=== PATIENT | male | born 1965 | race Caucasian/White ===

== ENCOUNTER 2017-07-25 16:28 | Inpatient (IN) | payer OTHER ==
--- NOTE | 2017-07-25 16:57 | PDOC ---
Rapid Medical Evaluation Time Seen by Provider: 07/25/17 16:55 Medical Evaluation: 07/25/17 16:55 I have performed a brief in-person evaluation of this patient. The patient presents with a chief complaint of: Worsening head/neck tremors w/ ataxia and anorexia x 2 weeks. H/o torticollis s/p botox in the past Pertinent physical exam findings:head/neck tremors while at triage I have ordered the following: cbc/chem/ua The patient will proceed to the ED for further evaluation. 07/25/17 16:57 07/25/17 16:59 Discharge Disposition - Referrals Referrals: Carlos Mejia MD [Primary Care Provider] - - Patient Instructions - Post Discharge Activity
[2017-07-25 17:02] VITALS: BMI 24.4
[2017-07-25 17:21] LABS: BASO % 0.8 % (0-2.0); EOS % 0.1 % (0-4.5); HEMATOCRIT 49.3 % (35.4-49); HEMOGLOBIN 16.8 GM/dL (11.7-16.9); LYMPH % 14.3 % (8-40); MCH 32.5 pg (25.7-33.7); MEAN CELL VOLUME 95.5 fl (80-96); MONO % 6.6 % (3.8-10.2); NEUT % 78.2 % (42.8-82.8); PLATELET COUNT 81 K/MM3 (134-434); RBC 5.16 M/mm3 (4.00-5.60); RDW 13.8 % (11.9-15.9); WHITE BLOOD COUNT 4.7 K/mm3 (4.0-10.0)
[2017-07-25 17:44] LABS: ALBUMIN 4.1 g/dl (3.4-5.0); ANION GAP 15 (8-16); BILIRUBIN,TOTAL 0.9 mg/dL (0.2-1.0); BLOOD UREA NITROGEN 13 mg/dL (7-18); CALCIUM 8.1 mg/dL (8.5-10.1); CHLORIDE 95 mmol/L (98-107); CO2 26 mmol/L (21-32); CREATININE 0.9 mg/dL (0.7-1.3); GLUCOSE,RANDOM 174 mg/dL (74-106); POTASSIUM 3.2 mmol/L (3.5-5.1); SGOT/AST 103 U/L (15-37); SGPT/ALT 69 U/L (12-78); SODIUM 136 mmol/L (136-145)
[2017-07-25 17:49] LABS: ALK PHOS 88 U/L (45-117); TOT PROT 7.8 g/dl (6.4-8.2)
--- NOTE | 2017-07-25 17:51 | PDOC ---
History of Present Illness <Lola Gil - Last Filed: 07/25/17 17:50> - General History Source: Patient Exam Limitations: No Limitations - History of Present Illness Initial Comments: 07/25/17 18:31 The patient is a 51-year-old male with a significant past medical history of torticollis s/p botox in the past, who presents to the emergency department with worsening head tremors, ataxia, and loss of appetite for 2 weeks. He states he has had previous episodes of head/neck tremors, but his head has been shaking more severely today. He also reports of an abnormal gait and unsteadiness when walking, which is a new problem. He states his gait abnormality is worsened when his head tremors are more severe. He notes associated somnolence, vomiting, bowel incontinence, urinary incontinence, and occasional confusion over the last two weeks. The patient denies chest pain, shortness of breath, headache and dizziness. The patient denies fever, chills, abdominal pain, nausea, diarrhea and constipation. The patient denies dysuria, frequency, urgency and hematuria. Allergies: NKDA Past Surgical History: None reported Social History: Alcohol use. No other toxic habits reported. PCP: Dr. Mejia <Valentina Juan - Last Filed: 07/25/17 18:31> <Elissa Santos - Last Filed: 07/25/17 21:42> - General Chief Complaint: Tremors Stated Complaint: RT SIDE SLUMPED Time Seen by Provider: 07/25/17 16:55 Past History - Past Medical History COPD: No - Suicide/Smoking/Psychosocial Hx Smoking History: Never smoked Have you smoked in the past 12 months: No Information on smoking cessation initiated: No Hx Alcohol Use: No Drug/Substance Use Hx: No Substance Use Type: None <Lola Gil - Last Filed: 07/25/17 17:50> <Valentina Juan - Last Filed: 07/25/17 18:31> <Elissa Santos - Last Filed: 07/25/17 21:42> - Past Medical History Allergies/Adverse Reactions: Allergies Allergy/AdvReac Type Severity Reaction Status Date / Time No Known Allergies Allergy Verified 07/25/17 17:03 Review of Systems - Review of Systems Able to Perform ROS?: Yes Comments:: 07/25/17 18:31 GENERAL/CONSTITUTIONAL: No fever or chills. No weakness. (+) Loss of appetite. HEAD, EYES, EARS, NOSE AND THROAT: No change in vision. No ear pain or discharge. No sore throat. CARDIOVASCULAR: No chest pain or shortness of breath. RESPIRATORY: No cough, wheezing, or hemoptysis. GASTROINTESTINAL: (+) Vomiting. No nausea, diarrhea or constipation. GENITOURINARY: No dysuria, frequency. MUSCULOSKELETAL: No joint or muscle swelling or pain. No neck or back pain. SKIN: No rash NEUROLOGIC: (+) Head/neck tremors. (+) Gait abnormality. No headache, vertigo, loss of consciousness, or change in strength/sensation. ENDOCRINE: No increased thirst. No abnormal weight change. HEMATOLOGIC/LYMPHATIC: No anemia, easy bleeding, or history of blood clots. ALLERGIC/IMMUNOLOGIC: No hives or skin allergy. <Valentina Juan - Last Filed: 07/25/17 18:31> *Physical Exam - Vital Signs Last Vital Signs Temp Pulse Resp BP Pulse Ox 98.4 F 106 H 18 145/91 95 07/25/17 16:56 07/25/17 16:56 07/25/17 16:56 07/25/17 16:56 07/25/17 16:56 <Lola Gil - Last Filed: 07/25/17 17:50> - Vital Signs Last Vital Signs Temp Pulse Resp BP Pulse Ox 98.4 F 106 H 18 145/91 95 07/25/17 16:56 07/25/17 16:56 07/25/17 16:56 07/25/17 16:56 07/25/17 16:56 - Physical Exam Comments: 07/25/17 18:32 GENERAL: Awake, alert, and fully oriented, in no acute distress HEAD: No signs of trauma EYES: PERRLA, EOMI, sclera anicteric, conjunctiva clear ENT: Auricles normal inspection, hearing grossly normal, nares patent, oropharynx clear without exudates. Moist mucosa NECK: Normal ROM, supple, no lymphadenopathy, JVD, or masses LUNGS: Breath sounds equal, clear to auscultation bilaterally. No wheezes, and no crackles HEART: Regular rate and rhythm, normal S1 and S2, no murmurs, rubs or gallops ABDOMEN: Soft, nontender, normoactive bowel sounds. No guarding, no rebound. No masses EXTREMITIES: Normal range of motion, no edema. No clubbing or cyanosis. No cords, erythema, or tenderness. 5/5 strength in all extremities. NEUROLOGICAL: Cranial nerves II through XII grossly intact. Normal speech. (+) Torticollis. (+) Clumsiness on finger to nose without past pointing. (+) Broad- based gait. (+) Bobbing movement of his head at rest. SKIN: Warm, Dry, normal turgor, no rashes or lesions noted. <Valentina Juan - Last Filed: 07/25/17 18:31> - Vital Signs Last Vital Signs Temp Pulse Resp BP Pulse Ox 98.4 F 106 H 18 145/91 95 07/25/17 16:56 07/25/17 16:56 07/25/17 16:56 07/25/17 16:56 07/25/17 16:56 <Elissa Santos - Last Filed: 07/25/17 21:42> ED Treatment Course - LABORATORY CBC & Chemistry Diagram: 07/25/17 17:15 07/25/17 17:15 - ADDITIONAL ORDERS Additional order review: 07/25/17 17:15 RBC 5.16 MCV 95.5 MCHC 34.0 RDW 13.8 MPV 8.0 Neutrophils % 78.2 Lymphocytes % 14.3 Monocytes % 6.6 Eosinophils % 0.1 Basophils % 0.8 <Lola Gil - Last Filed: 07/25/17 17:50> - LABORATORY CBC & Chemistry Diagram: 07/25/17 17:15 07/25/17 17:15 - ADDITIONAL ORDERS Additional order review: Laboratory Results 07/25/17 17:15 Sodium 136 Potassium 3.2 L Chloride 95 L Carbon Dioxide 26 Anion Gap 15 BUN 13 Creatinine 0.9 Creat Clearance w eGFR > 60 Random Glucose 174 H Calcium 8.1 L Total Bilirubin 0.9 AST 103 H ALT 69 Alkaline Phosphatase 88 Total Protein 7.8 Albumin 4.1 07/25/17 17:15 RBC 5.16 MCV 95.5 MCHC 34.0 RDW 13.8 MPV 8.0 Neutrophils % 78.2 Lymphocytes % 14.3 Monocytes % 6.6 Eosinophils % 0.1 Basophils % 0.8 - Medications Given in the ED: ED Medications Discontinued Medications Generic Name Dose Route Start Last Admin Trade Name Freq PRN Reason Stop Dose Admin Sodium Chloride 1,000 ml 07/25/17 18:08 07/25/17 18:24 Normal Saline - IV 07/25/17 18:09 1,000 ml ONCE ONE Administration <Valentina Juan - Last Filed: 07/25/17 18:31> - LABORATORY CBC & Chemistry Diagram: 07/25/17 17:15 07/25/17 17:15 - ADDITIONAL ORDERS Additional order review: Laboratory Results 07/25/17 07/25/17 07/25/17 18:12 18:12 17:15 Sodium 136 Potassium 3.2 L Chloride 95 L Carbon Dioxide 26 Anion Gap 15 BUN 13 Creatinine 0.9 Creat Clearance w eGFR > 60 Random Glucose 174 H Calcium 8.1 L Total Bilirubin 0.9 AST 103 H ALT 69 Alkaline Phosphatase 88 Total Protein 7.8 Albumin 4.1 TSH 0.67 Alcohol, Quantitative 407.2 H* 07/25/17 17:15 RBC 5.16 MCV 95.5 MCHC 34.0 RDW 13.8 MPV 8.0 Neutrophils % 78.2 Lymphocytes % 14.3 Monocytes % 6.6 Eosinophils % 0.1 Basophils % 0.8 - Medications Given in the ED: ED Medications Discontinued Medications Generic Name Dose Route Start Last Admin Trade Name Freq PRN Reason Stop Dose Admin Sodium Chloride 1,000 ml 07/25/17 18:08 07/25/17 18:24 Normal Saline - IV 07/25/17 18:09 1,000 ml ONCE ONE Administration <Elissa Santos - Last Filed: 07/25/17 21:42> *DC/Admit/Observation/Transfer <Lola Gil - Last Filed: 07/25/17 17:50> - Attestations Scribe Attestion: 07/25/17 18:32 Documentation prepared by Valentina Juan, acting as medical billing clerk for Lola Gil MD, /DO. <Valentina Juan - Last Filed: 07/25/17 18:31> - Discharge Dispostion Admit: Yes <Elissa Santos - Last Filed: 07/25/17 21:42> Diagnosis at time of Disposition: Unsteady gait - Discharge Dispostion Condition at time of disposition: Guarded - Referrals Referrals: Carlos Mejia MD [Primary Care Provider] - - Patient Instructions - Post Discharge Activity
[2017-07-25] MEDS ORDERED: SODIUM CHLORIDE 0.9% 1000 ML INFUS.BAG IV ONE (18:08)
--- NOTE | 2017-07-25 19:15 | PDOC ---
*Physical Exam - Vital Signs Last Vital Signs Temp Pulse Resp BP Pulse Ox 98.4 F 106 H 18 145/91 95 07/25/17 16:56 07/25/17 16:56 07/25/17 16:56 07/25/17 16:56 07/25/17 16:56 ED Treatment Course - LABORATORY CBC & Chemistry Diagram: 07/25/17 17:15 07/25/17 17:15 - ADDITIONAL ORDERS Additional order review: Laboratory Results 07/25/17 07/25/17 07/25/17 18:12 18:12 17:15 Sodium 136 Potassium 3.2 L Chloride 95 L Carbon Dioxide 26 Anion Gap 15 BUN 13 Creatinine 0.9 Creat Clearance w eGFR > 60 Random Glucose 174 H Calcium 8.1 L Total Bilirubin 0.9 AST 103 H ALT 69 Alkaline Phosphatase 88 Total Protein 7.8 Albumin 4.1 TSH 0.67 Alcohol, Quantitative 407.2 H* 07/25/17 17:15 RBC 5.16 MCV 95.5 MCHC 34.0 RDW 13.8 MPV 8.0 Neutrophils % 78.2 Lymphocytes % 14.3 Monocytes % 6.6 Eosinophils % 0.1 Basophils % 0.8 - Medications Given in the ED: ED Medications Discontinued Medications Generic Name Dose Route Start Last Admin Trade Name Freq PRN Reason Stop Dose Admin Sodium Chloride 1,000 ml 07/25/17 18:08 07/25/17 18:24 Normal Saline - IV 07/25/17 18:09 1,000 ml ONCE ONE Administration Medical Decision Making - Medical Decision Making 07/25/17 19:15 Care taken over from Dr. Gil. 07/25/17 21:57 Patient admitted for inpatient MRI. *DC/Admit/Observation/Transfer Diagnosis at time of Disposition: Unsteady gait - Discharge Dispostion Condition at time of disposition: Guarded - Referrals Referrals: Carlos Mejia MD [Primary Care Provider] - - Patient Instructions - Post Discharge Activity
[2017-07-25] MEDS ORDERED: POTASSIUM CHLORIDE ORAL LIQUID 20 MEQ/15 ML PO ONE (21:39)
[2017-07-25] MEDS ORDERED: MAGNESIUM SULF 50% (8.12 MEQ/2 ML-1 GM VIAL) IVPB ONE (21:40)
[2017-07-25] MEDS ORDERED: POTASSIUM CHLORIDE ORAL LIQUID 20 MEQ/15 ML ONE (22:03)
[2017-07-25] MEDS ORDERED: MAGNESIUM SULF 50% (8.12 MEQ/2 ML-1 GM VIAL) ONE (22:04)
--- NOTE | 2017-07-25 22:49 | HP ---
Admitting History and Physical - Admission Chief Complaint: altered gait, decreased appetite History of Present Illness: 51 yo male, long-standing history of torticollis, with previous procedures, including botox and muscle relaxants that were ineffective, presents with unsteady gait, decreased appetite. Notes appetite has been off for several weeks. Has been stressed lately, as has been moving into a new home and trying to get his old home ready for renting. Has been drinking about a glass of Vodka every night, more on weekends and lately there have been a lot of holiday parties that he has attended which also involved drinking. Notes less bowel movements lately as has been eating less, did lose some weight. Has had numbness in bilateral 4th and 5th digits on and off, some numbness in right toes as well (did fracture his right ankle about 5 years ago). Today was noted by his to have more tremor in his head. History Source: Patient Limitations to Obtaining History: No Limitations - Past Medical History Additional Past Medical History: Torticollis - Past Surgical History Additional Past Surgical History: ORIF right ankle - Smoking History Smoking history: Never smoked Have you smoked in the past 12 months: No - Alcohol/Substance Use Hx Alcohol Use: Yes (Vodka daily) - Social History Usual Living Arrangement: Yes: With Spouse Occupation: works for [employer], [email or web address] dept Home Medications - Allergies Allergies/Adverse Reactions: Allergies Allergy/AdvReac Type Severity Reaction Status Date / Time No Known Allergies Allergy Verified 07/25/17 17:03 - Home Medications Home Medications: Ambulatory Orders NK [No Known Home Medication] 07/25/17 Family Disease History - Family Disease History Family Disease History: Other: Father (alzhemers dementia), Brother (depression , hypothyroid) Review of Systems - Review of Systems Constitutional: reports: Loss of Appetite, Weakness Eyes: reports: No Symptoms HENT: denies: Difficult Swallowing Neck: reports: Other (chronic torticollis) Cardiovascular: denies: Chest Pain, Palpitations Respiratory: denies: Cough, SOB Genitourinary: denies: Burning, Discharge, Dysuria Neurological: reports: Unsteady Gait. denies: Change in LOC Physical Examination Vital Signs: Vital Signs Temperature 98.4 F 07/25/17 16:56 Pulse Rate 106 H 07/25/17 16:56 Respiratory Rate 18 07/25/17 16:56 Blood Pressure 145/91 07/25/17 16:56 O2 Sat by Pulse Oximetry (%) 95 07/25/17 16:56 Constitutional: Yes: No Distress, Calm Neck: Yes: Other (torticollis with left sided tilt) Cardiovascular: Yes: Regular Rate and Rhythm, S1, S2. No: Murmur Respiratory: Yes: Regular, CTA Bilaterally. No: Rales, Rhonchi, Wheezes Gastrointestinal: Yes: Normal Bowel Sounds, Soft. No: Distention, Tenderness Edema: No Neurological: Yes: Alert, Oriented, Unsteady Gait. No: Asterixis, Dysarthria Labs: CBC, BMP 07/25/17 17:15 07/25/17 17:15 Imaging - Results Chest X-ray: Image Reviewed ((unofficial) no acute lung disease) Cat Scan: Pending (CT head) Problem List - Problems (1) Unsteady gait Assessment/Plan: -due to alcohol? -will get neuro consult -with numbness in fingers and toes may need imaging of neck (Ct Head still pending) -may need MRI brain as well Code(s): R26.81 - UNSTEADINESS ON FEET (2) Decreased appetite Assessment/Plan: -check CT abd/pelvis, r/o mass (liver or pancreas given alcohol history) Code(s): R63.0 - ANOREXIA (3) Torticollis Assessment/Plan: -chronic -tremor noted by earlier may be due to alcohol use Code(s): M43.6 - TORTICOLLIS (4) Alcohol intoxication Assessment/Plan: -with elevated alcohol level (>400) will give IVF, folic acid, MVI -will need to be observed for withdrawal symptoms Code(s): F10.929 - ALCOHOL USE, UNSPECIFIED WITH INTOXICATION, UNSPECIFIED
[2017-07-26] MEDS: SODIUM CHLORIDE 1,000 ML IV SCH (00:13)
[2017-07-26 03:34] LABS: URINE APPEARANCE SLCLOUDY; URINE BILIRUBIN NEGATIVE (NEGATIVE); URINE BLOOD 1+ (NEGATIVE); URINE COLOR YELLOW; URINE GLUCOSE (UA) NEGATIVE (NEGATIVE); URINE KETONE 2+ (NEGATIVE); URINE LEUK ESTERASE NEGATIVE (NEGATIVE); URINE NITRITE NEGATIVE (NEGATIVE); URINE UROBILINOGEN 4.0 E.U/dl mg/dL (0.2-1.0)
[2017-07-26 03:37] LABS: URINE PROTEIN 1+ (NEGATIVE)
[2017-07-26 03:40] LABS: URINE BACTERIA RARE /hpf (NONE SEEN); URINE MUCUS RARE
[2017-07-26 09:16] LABS: BASO % 1.3 % (0-2.0); EOS % 0.7 % (0-4.5); HEMATOCRIT 45.4 % (35.4-49); HEMOGLOBIN 15.2 GM/dL (11.7-16.9); MCH 32.4 pg (25.7-33.7); MCHC 33.4 g/dl (32.0-35.9); MEAN CELL VOLUME 96.9 fl (80-96); MONO % 9.8 % (3.8-10.2); NEUT % 58.2 % (42.8-82.8); PLATELET COUNT 60 K/MM3 (134-434); RBC 4.69 M/mm3 (4.00-5.60); RDW 13.9 % (11.9-15.9); WHITE BLOOD COUNT 3.7 K/mm3 (4.0-10.0)
[2017-07-26] MEDS: FOLIC ACID 1 MG TABLET (FP) PO SCH (09:55)
[2017-07-26] MEDS: MULTIVITAMINS (DAILY MVI) TABLET (FP) PO SCH (09:56)
--- NOTE | 2017-07-26 10:00 | CONSULT ---
Consult - text type - Consultation Consultation Note: Neurology HPI: 51 yo male, long-standing history of torticollis, with previous procedures, including botox and muscle relaxants that were ineffective, presents with unsteady gait, decreased appetite. Notes appetite has been off for several weeks. Has been stressed lately, as has been moving into a new home and trying to get his old home ready for renting. Has been drinking about a glass of Vodka every night, more on weekends and lately there have been a lot of holiday parties that he has attended which also involved drinking. N Has had numbness in bilateral 4th and 5th digits on and off, some numbness in right toes as well (did fracture his right ankle about 5 years ago). He does have visible tremoulousness and CT head was completed and did not show acute changes. We discussed checking an MRI and would be curious regarding cerebellar size and if volume loss that can explain patient's gait further. Acute intoxication certainly contributing. Physcial therapy would be of benefit and possibly rehab if he qualifies. Outpatient physcial therapy at a minimum. Most effetive would be etoh counceling and cessation. History Source: Patient Limitations to Obtaining History: No Limitations - Past Medical History Additional Past Medical History: Torticollis - Past Surgical History Additional Past Surgical History: ORIF right ankle - Smoking History Smoking history: Never smoked Have you smoked in the past 12 months: No - Alcohol/Substance Use Hx Alcohol Use: Yes (Vodka daily) - Social History Usual Living Arrangement: Yes: With Spouse Occupation: works for [employer], [employer] dept Home Medications - Allergies Allergies/Adverse Reactions: Allergies Allergy/AdvReac Type Severity Reaction Status Date / Time No Known Allergies Allergy Verified 07/25/17 17:03 - Home Medications Home Medications: Ambulatory Orders NK [No Known Home Medication] 07/25/17 Family Disease History - Family Disease History Family Disease History: Other: Father (alzhemers dementia), Brother (depression , hypothyroid) Review of Systems - Review of Systems Constitutional: reports: Loss of Appetite, Weakness Eyes: reports: No Symptoms HENT: denies: Difficult Swallowing Neck: reports: Other (chronic torticollis) Cardiovascular: denies: Chest Pain, Palpitations Respiratory: denies: Cough, SOB Genitourinary: denies: Burning, Discharge, Dysuria Neurological: reports: Unsteady Gait. denies: Change in LOC Physical Examination Vital Signs: Vital Signs Temperature 98.2 F 07/26/17 06:00 Pulse Rate 98 H 07/26/17 06:00 Respiratory Rate 18 07/26/17 06:00 Blood Pressure 134/84 07/26/17 06:00 O2 Sat by Pulse Oximetry (%) 95 07/25/17 16:56 Constitutional: Yes: No Distress, Calm Neck: Yes: Other (torticollis with left sided tilt) Cardiovascular: Yes: Regular Rate and Rhythm, S1, S2. No: Murmur Respiratory: Yes: Regular, CTA Bilaterally. No: Rales, Rhonchi, Wheezes Gastrointestinal: Yes: Normal Bowel Sounds, Soft. No: Distention, Tenderness Edema: No Neurological: CN intact, no facial droop, generalized tremulousness noted, sterngth intact, gait limited ability to ambulate Labs: CBCD WBC 3.7 K/mm3 (4.0-10.0) L 07/26/17 08:11 RBC 4.69 M/mm3 (4.00-5.60) 07/26/17 08:11 Hgb 15.2 GM/dL (11.7-16.9) 07/26/17 08:11 Hct 45.4 % (35.4-49) 07/26/17 08:11 MCV 96.9 fl (80-96) H 07/26/17 08:11 MCHC 33.4 g/dl (32.0-35.9) 07/26/17 08:11 RDW 13.9 % (11.9-15.9) 07/26/17 08:11 Plt Count 60 K/MM3 (134-434) L D 07/26/17 08:11 MPV 8.0 fl (7.5-11.1) 07/26/17 08:11 CMP Sodium 136 mmol/L (136-145) 07/25/17 17:15 Potassium 3.2 mmol/L (3.5-5.1) L 07/25/17 17:15 Chloride 95 mmol/L (98-107) L 07/25/17 17:15 Carbon Dioxide 26 mmol/L (21-32) 07/25/17 17:15 Anion Gap 15 (8-16) 07/25/17 17:15 BUN 13 mg/dL (7-18) 07/25/17 17:15 Creatinine 0.9 mg/dL (0.7-1.3) 07/25/17 17:15 Creat Clearance w eGFR > 60 (>60) 07/25/17 17:15 Calcium 8.1 mg/dL (8.5-10.1) L 07/25/17 17:15 Total Bilirubin 0.9 mg/dL (0.2-1.0) 07/25/17 17:15 AST 103 U/L (15-37) H 07/25/17 17:15 ALT 69 U/L (12-78) 07/25/17 17:15 Alkaline Phosphatase 88 U/L (45-117) 07/25/17 17:15 Total Protein 7.8 g/dl (6.4-8.2) 07/25/17 17:15 Albumin 4.1 g/dl (3.4-5.0) 07/25/17 17:15 Imaging - Results Chest X-ray: Image Reviewed ((unofficial) no acute lung disease) Cat Scan: Head, reviewed, no acute changes Plan: 51 yo male, long-standing history of torticollis, with previous procedures, including botox and muscle relaxants that were ineffective, presents with unsteady gait, decreased appetite. Notes appetite has been off for several weeks. Has been stressed lately, as has been moving into a new home and trying to get his old home ready for renting. Has been drinking about a glass of Vodka every night, more on weekends and lately there have been a lot of holiday parties that he has attended which also involved drinking. N Has had numbness in bilateral 4th and 5th digits on and off, some numbness in right toes as well (did fracture his right ankle about 5 years ago). He does have visible tremulousness and CT head was completed and did not show acute changes. We discussed checking an MRI and would be curious regarding cerebellar size and if volume loss that can explain patient's gait further. Acute intoxication certainly contributing. Physcial therapy would be of benefit and possibly rehab if he qualifies. Outpatient physcial therapy at a minimum. Most effective would be etoh counseling and cessation. Consider Dr. Rojelio Mustafa. Will order MRI brain. Monitor for withdrawal, Librium. Fall precautions, phsyical therapy.
[2017-07-26 10:08] LABS: ALBUMIN 3.6 g/dl (3.4-5.0); ALK PHOS 73 U/L (45-117); ANION GAP 15 (8-16); BILIRUBIN,TOTAL 1.3 mg/dL (0.2-1.0); BLOOD UREA NITROGEN 7 mg/dL (7-18); CALCIUM 7.6 mg/dL (8.5-10.1); CHLORIDE 100 mmol/L (98-107); CO2 23 mmol/L (21-32); CREATININE 0.5 mg/dL (0.7-1.3); GLUCOSE,RANDOM 94 mg/dL (74-106); MAGNESIUM 2.2 mg/dL (1.8-2.4); POTASSIUM 3.3 mmol/L (3.5-5.1); SGOT/AST 64 U/L (15-37); SGPT/ALT 48 U/L (12-78); SODIUM 138 mmol/L (136-145); TOT PROT 6.9 g/dl (6.4-8.2)
[2017-07-26] MEDS ORDERED: chlordiazePOXIDE HCL 25 MG CAPSULE PO PRN (10:15)
[2017-07-26] MEDS: chlordiazePOXIDE HCL 25 MG CAPSULE PO SCH ×4 (11:40→23:30)
[2017-07-26 11:58] LABS: ERYTHROCYTE SEDIMENTATION RATE 6 mm/hr (0-20)
--- NOTE | 2017-07-26 12:36 | PN ---
Progress Note, Physician Chief Complaint: Mr Gay says he feels somewhat anxious today. Walked with PT, said he did well. No cp, sob,n/v. - Current Medication List Current Medications: Active Medications Chlordiazepoxide HCl (Librium -) 50 mg PO [id number] [facility] Stop: 07/27/17 05:01 Last Admin: 07/26/17 11:40 Dose: 50 mg Chlordiazepoxide HCl (Librium -) 25 mg PO [id number] [facility] Stop: 07/28/17 05:01 Chlordiazepoxide HCl (Librium -) 15 mg PO [id number] [facility] Stop: 07/29/17 05:01 Chlordiazepoxide HCl (Librium -) 25 mg PO Q4H PRN PRN Reason: WITHDRAWAL(CONT SUBST) Stop: 07/29/17 10:14 Folic Acid (Folic Acid -) 1 mg PO DAILY [facility] Last Admin: 07/26/17 09:55 Dose: 1 mg Sodium Chloride (Normal Saline -) 1,000 mls @ 75 mls/hr IV ASDIR [facility] Last Admin: 07/26/17 00:13 Dose: 75 mls/hr Multivitamins/Minerals/Vitamin C (Tab-A-Vit -) 1 tab PO DAILY [facility] Last Admin: 07/26/17 09:56 Dose: 1 tab - Objective Vital Signs: Vital Signs Temperature 36.8 C 07/26/17 06:00 Pulse Rate 98 H 07/26/17 06:00 Respiratory Rate 18 07/26/17 06:00 Blood Pressure 134/84 07/26/17 06:00 O2 Sat by Pulse Oximetry (%) 95 07/25/17 16:56 Constitutional: Yes: Well Nourished, Anxious, Other (tremulous) Cardiovascular: Yes: Regular Rate and Rhythm. No: Gallop, Murmur, Rub Respiratory: Yes: Regular, CTA Bilaterally. No: Rales, Rhonchi, Wheezes Gastrointestinal: Yes: Normal Bowel Sounds, Soft. No: Distention, Tenderness Extremities: Yes: WNL Edema: No Labs: CBC, BMP 07/26/17 08:11 07/26/17 08:11 Problem List - Problems (1) Alcohol dependence with uncomplicated withdrawal Assessment/Plan: -case d/w alignment specialist -placed on librium taper -monitor Code(s): F10.230 - ALCOHOL DEPENDENCE WITH WITHDRAWAL, UNCOMPLICATED (2) Hypokalemia Assessment/Plan: -replace -recheck in am Code(s): E87.6 - HYPOKALEMIA (3) Torticollis Assessment/Plan: -continue PT -appreciate neurology assistance Code(s): M43.6 - TORTICOLLIS
[2017-07-26] MEDS ORDERED: POTASSIUM CHLORIDE TABS 20 MEQ TABLET.ER (FP) PO ONE (13:45)
--- NOTE | 2017-07-26 14:43 | CONSULT ---
Consult Detox [facility] Reason for Current Admission/Consult: alcohol use disorder and withdrawal Referred by:: viral Gao MD - History History of Present Illness: 51 yo m with h/o chronic alcoholism, increasing use since teenager, strong family history, worse over holidas admitted intoxicated and unsteady on his feet adn startd on libirum detox, still very tremulous with high ciwa score. denies all ovtehr illlicit abilio guse, no smoking, never in treatment no psychiatric illness, no h/o seizurs or DTS in past. low k on labs, ordered utox to confirm patient reports. - History Source History Provided By: Patient Limitations to Obtaining History: No Limitations - Alcohol/Substance Use Hx Alcohol Use: Yes (Vodka daily) Hx Substance Use: No Hx Substance Use Treatment: No - Current Drug/Alcohol Use Alcohol Route: Oral Frequency: Daily Amount used: 1-2 pints vodka daily Age of first use: 17 Date of Last Use: 07/25/17 CIWA Score - CIWA Score Nausea/Vomitin Muscle Tremors: 4-Moderate,w/Arms Extend Anxiety: 4-Mod. Anxious/Guarded Agitation: 3 Paroxysmal Sweats: 2 Orientation: 0-Oriented Tacttile Disturbances: 1-Very Mild Itch/Numbness Auditory Disturbances: 0-None Visual Disturbances: 0-None Headache: 1-Very Mild CIWA-Ar Total Score: 18 Assessment Plan - Diagnosis (1) Alcohol dependence with uncomplicated withdrawal Status: Acute (2) Alcohol intoxication Status: Acute (3) Unsteady gait Status: Acute (4) Hypokalemia Status: Acute - Plan Plan: Chart, labs, imaging, ekg reviewed, history taken and patietn examined, discussed care with medical staff on floor. 51 yo m with h/o alcohol use disorder, denies, seizures, dts or smoking, never been in treatment before, reports Alcohol withdrawal symptoms when he deoes not drink, alcohol use worse over the holidays was admitted with intoxication and unsteady on his feet, found hypokalemic started on librium detox but still has high ciwa score. give 50mg libirum x1 dose now and liberal use of prn medication recommneded. Patient is working adn requested referral for intensive outpatient treatment on discharge. In view of symptoms complete medically supervised detox here at [facility]. Natanael Vazquez MD [phone] - Medication Detox Regimen/Protocol: [facility]
[2017-07-26] MEDS ORDERED: ZOLPIDEM TARTRATE 5 MG TABLET PO PRN (15:01)
[2017-07-26] MEDS ORDERED: chlordiazePOXIDE HCL 25 MG CAPSULE PO ONE (15:01)
[2017-07-26 20:53] LABS: COCAINE, UR NEGATIVE ng/ml (CUTOFF=300); METHADONE, UR NEGATIVE ng/ml (CUTOFF=300); OPIATES, URI NEGATIVE ng/ml (CUTOFF=300); PHENCYCLIDINE,URINE NEGATIVE ng/ml (CUTOFF=25); URINE AMPHETAMINES NEGATIVE ng/ml (CUTOFF=500); URINE BARBITURATES NEGATIVE ng/ml (CUTOFF=200); URINE BENZODIAZEPINES NEGATIVE ng/ml (CUTOFF=200)
[2017-07-26] MEDS: THIAMINE HCL 100 MG TABLET (FP) PO SCH ×2 (22:27→23:29)
[2017-07-26] MEDS: POTASSIUM CHLORIDE TABS 20 MEQ TABLET.ER (FP) PO SCH ×2 (22:28→23:29)
[2017-07-27] MEDS ORDERED: chlordiazePOXIDE HCL 25 MG CAPSULE PO ONE (00:56)
[2017-07-27] MEDS ORDERED: POTASSIUM CHLORIDE TABS 20 MEQ TABLET.ER (FP) PO ONE (00:57)
[2017-07-27] MEDS ORDERED: THIAMINE HCL 100 MG TABLET (FP) PO ONE (00:57)
[2017-07-27] MEDS: SODIUM CHLORIDE 1,000 ML IV SCH ×2 (03:24→18:16)
[2017-07-27] MEDS ORDERED: PT OWN MED DRAWER 7, Y5N ONE (06:18)
[2017-07-27] MEDS: chlordiazePOXIDE HCL 25 MG CAPSULE PO SCH ×4 (06:54→22:26)
[2017-07-27 08:18] LABS: BASO % 0.8 % (0-2.0); EOS % 1.1 % (0-4.5); HEMATOCRIT 47.4 % (35.4-49); HEMOGLOBIN 15.9 GM/dL (11.7-16.9); LYMPH % 23.7 % (8-40); MCH 32.3 pg (25.7-33.7); MCHC 33.5 g/dl (32.0-35.9); MEAN CELL VOLUME 96.6 fl (80-96); MEAN PLT VOLUME 8.1 fl (7.5-11.1); MONO % 12.6 % (3.8-10.2); NEUT % 61.8 % (42.8-82.8); PLATELET COUNT 53 K/MM3 (134-434); RDW 13.7 % (11.9-15.9); WHITE BLOOD COUNT 3.9 K/mm3 (4.0-10.0)
[2017-07-27 08:45] LABS: ANION GAP 12 (8-16); BLOOD UREA NITROGEN 7 mg/dL (7-18); CALCIUM 8.6 mg/dL (8.5-10.1); CHLORIDE 103 mmol/L (98-107); CO2 22 mmol/L (21-32); CREATININE 0.6 mg/dL (0.7-1.3); GLUCOSE,RANDOM 96 mg/dL (74-106); MAGNESIUM 2.1 mg/dL (1.8-2.4); PHOSPHOROUS 2.4 mg/dL (2.5-4.9); SODIUM 137 mmol/L (136-145)
--- NOTE | 2017-07-27 10:16 | PN ---
Progress Note (short form) - Note Progress Note: Neurology HPI: 51 yo male, long-standing history of torticollis, with previous procedures, including botox and muscle relaxants that were ineffective, presents with unsteady gait, decreased appetite. Notes appetite has been off for several weeks. Has been stressed lately, as has been moving into a new home and trying to get his old home ready for renting. Has been drinking about a glass of Vodka every night, more on weekends and lately there have been a lot of holiday parties that he has attended which also involved drinking. CT head was completed and did not show acute changes. MRI brain was completed and did not show acute changes, some cerebellar atrophy noted likely related to Etoh use. MRI C spine also noted and showed severe spinal stenosis C6/C7 with spinal cord flattening noted. Active Medications Chlordiazepoxide HCl (Librium -) 25 mg PO [id number] [facility] Stop: 07/28/17 05:01 Chlordiazepoxide HCl (Librium -) 15 mg PO [id number] [facility] Stop: 07/29/17 05:01 Chlordiazepoxide HCl (Librium -) 25 mg PO Q4H PRN PRN Reason: WITHDRAWAL(CONT SUBST) Stop: 07/29/17 10:14 Folic Acid (Folic Acid -) 1 mg PO DAILY [facility] Last Admin: 07/26/17 09:55 Dose: 1 mg Sodium Chloride (Normal Saline -) 1,000 mls @ 75 mls/hr IV ASDIR [facility] Last Admin: 07/27/17 03:24 Dose: 75 mls/hr Multivitamins/Minerals/Vitamin C (Tab-A-Vit -) 1 tab PO DAILY [facility] Last Admin: 07/26/17 09:56 Dose: 1 tab Potassium Chloride (K-Dur -) 20 meq PO BID [facility] Last Admin: 07/26/17 23:29 Dose: Not Given Thiamine HCl (Vitamin B1 -) 100 mg PO HS [facility] Last Admin: 07/26/17 23:29 Dose: Not Given Zolpidem Tartrate (Ambien -) 10 mg PO HS PRN PRN Reason: INSOMNIA Physical Examination Vital Signs Temperature 98.1 F 07/27/17 06:00 Pulse Rate 92 H 07/27/17 06:00 Respiratory Rate 20 07/27/17 06:00 Blood Pressure 150/77 07/27/17 06:00 O2 Sat by Pulse Oximetry (%) 95 07/25/17 16:56 Constitutional: Yes: No Distress, Calm Neck: Yes: Other (torticollis with left sided tilt) Cardiovascular: Yes: Regular Rate and Rhythm, S1, S2. No: Murmur Respiratory: Yes: Regular, CTA Bilaterally. No: Rales, Rhonchi, Wheezes Gastrointestinal: Yes: Normal Bowel Sounds, Soft. No: Distention, Tenderness Edema: No Neurological: CN intact, no facial droop, generalized tremulousness noted, sterngth intact, gait limited ability to ambulate Labs: CBCD WBC 3.9 K/mm3 (4.0-10.0) L 07/27/17 06:30 RBC 4.90 M/mm3 (4.00-5.60) 07/27/17 06:30 Hgb 15.9 GM/dL (11.7-16.9) 07/27/17 06:30 Hct 47.4 % (35.4-49) 07/27/17 06:30 MCV 96.6 fl (80-96) H 07/27/17 06:30 MCHC 33.5 g/dl (32.0-35.9) 07/27/17 06:30 RDW 13.7 % (11.9-15.9) 07/27/17 06:30 Plt Count 53 K/MM3 (134-434) L 07/27/17 06:30 MPV 8.1 fl (7.5-11.1) 07/27/17 06:30 CMP Sodium 137 mmol/L (136-145) 07/27/17 06:30 Potassium 4.0 mmol/L (3.5-5.1) D 07/27/17 06:30 Chloride 103 mmol/L (98-107) 07/27/17 06:30 Carbon Dioxide 22 mmol/L (21-32) 07/27/17 06:30 Anion Gap 12 (8-16) 07/27/17 06:30 BUN 7 mg/dL (7-18) 07/27/17 06:30 Creatinine 0.6 mg/dL (0.7-1.3) L 07/27/17 06:30 Creat Clearance w eGFR > 60 (>60) 07/26/17 08:11 Calcium 8.6 mg/dL (8.5-10.1) 07/27/17 06:30 Total Bilirubin 1.3 mg/dL (0.2-1.0) H D 07/26/17 08:11 AST 64 U/L (15-37) H D 07/26/17 08:11 ALT 48 U/L (12-78) D 07/26/17 08:11 Alkaline Phosphatase 73 U/L (45-117) 07/26/17 08:11 Total Protein 6.9 g/dl (6.4-8.2) 07/26/17 08:11 Albumin 3.6 g/dl (3.4-5.0) 07/26/17 08:11 Imaging - Results Chest X-ray: Image Reviewed ((unofficial) no acute lung disease) Cat Scan: Head, reviewed, no acute changes MRI brain; No acute changes MRI C spine: severe spinal stenosis noted with flattening of cord Plan: 51 yo male, long-standing history of torticollis, with previous procedures, including botox and muscle relaxants that were ineffective, presents with unsteady gait, decreased appetite. Notes appetite has been off for several weeks. Has been stressed lately, as has been moving into a new home and trying to get his old home ready for renting. Has been drinking about a glass of Vodka every night, more on weekends and lately there have been a lot of holiday parties that he has attended which also involved drinking. CT head was completed and did not show acute changes. MRI brain was completed and did not show acute changes, some cerebellar atrophy noted likely related to Etoh use. MRI C spine also noted and showed severe spinal stenosis C6/C7 with spinal cord flattening noted. Would consider NSGY consult for this Physcial therapy ordered Etoh counseling and cessation. Monitor for withdrawal, Librium Fall precautions
[2017-07-27] MEDS: POTASSIUM CHLORIDE TABS 20 MEQ TABLET.ER (FP) PO SCH ×2 (10:28→22:26)
[2017-07-27] MEDS: FOLIC ACID 1 MG TABLET (FP) PO SCH (10:28)
[2017-07-27] MEDS: MULTIVITAMINS (DAILY MVI) TABLET (FP) PO SCH (10:28)
--- NOTE | 2017-07-27 12:04 | PN ---
Progress Note, Physician Chief Complaint: Mr Gay says he feels better today. No cp, sob, n/v. - Current Medication List Current Medications: Active Medications Chlordiazepoxide HCl (Librium -) 25 mg PO [id number] [facility] Stop: 07/28/17 05:01 Last Admin: 07/27/17 11:21 Dose: 25 mg Chlordiazepoxide HCl (Librium -) 15 mg PO [id number] [facility] Stop: 07/29/17 05:01 Chlordiazepoxide HCl (Librium -) 25 mg PO Q4H PRN PRN Reason: WITHDRAWAL(CONT SUBST) Stop: 07/29/17 10:14 Folic Acid (Folic Acid -) 1 mg PO DAILY [facility] Last Admin: 07/27/17 10:28 Dose: 1 mg Sodium Chloride (Normal Saline -) 1,000 mls @ 75 mls/hr IV ASDIR [facility] Last Admin: 07/27/17 03:24 Dose: 75 mls/hr Multivitamins/Minerals/Vitamin C (Tab-A-Vit -) 1 tab PO DAILY [facility] Last Admin: 07/27/17 10:28 Dose: 1 tab Potassium Chloride (K-Dur -) 20 meq PO BID [facility] Last Admin: 07/27/17 10:28 Dose: 20 meq Potassium Phos/Sodium Phos (Phos-Nak Packet -) 1 packet PO TID [facility] Stop: 07/28/17 06:01 Thiamine HCl (Vitamin B1 -) 100 mg PO HS [facility] Last Admin: 07/26/17 23:29 Dose: Not Given Zolpidem Tartrate (Ambien -) 10 mg PO HS PRN PRN Reason: INSOMNIA - Objective Vital Signs: Vital Signs Temperature 36.7 C 07/27/17 06:00 Pulse Rate 102 H 07/27/17 10:00 Respiratory Rate 20 07/27/17 10:00 Blood Pressure 156/93 07/27/17 10:00 O2 Sat by Pulse Oximetry (%) 95 07/25/17 16:56 Constitutional: Yes: Well Nourished, No Distress, Calm Cardiovascular: Yes: Regular Rate and Rhythm. No: Gallop, Murmur, Rub Respiratory: Yes: Regular, CTA Bilaterally. No: Rales, Rhonchi, Wheezes Gastrointestinal: Yes: Normal Bowel Sounds, Soft. No: Distention, Tenderness Extremities: Yes: WNL Edema: No Neurological: No: Tremors Labs: CBC, BMP 07/27/17 06:30 07/27/17 06:30 Problem List - Problems (1) Alcohol dependence with uncomplicated withdrawal Code(s): F10.230 - ALCOHOL DEPENDENCE WITH WITHDRAWAL, UNCOMPLICATED (2) Hypokalemia Code(s): E87.6 - HYPOKALEMIA (3) Torticollis Code(s): M43.6 - TORTICOLLIS (4) Cervical spinal cord compression Code(s): G95.20 - UNSPECIFIED CORD COMPRESSION Assessment/Plan (1) Alcohol dependence with uncomplicated withdrawal Assessment/Plan: -patient much improved -tremors resolved -continue librium protocol Code(s): F10.230 - ALCOHOL DEPENDENCE WITH WITHDRAWAL, UNCOMPLICATED (2) Hypophosphatemia Assessment/Plan: -replace Code(s): E87.6 - HYPOKALEMIA (3) Torticollis Assessment/Plan: -continue PT -appreciate neurology assistance Code(s): M43.6 - TORTICOLLIS (4) Cord compression of the cervical spine -case d/w Dr Lemus -consult placed for Dr Mayorga -will await neurosurgical recommendations
--- NOTE | 2017-07-27 13:21 | EKG ---
Test Reason : Blood Pressure : / mmHG Vent. Rate : 115 BPM Atrial Rate : 115 BPM P-R Int : 164 ms QRS Dur : 088 ms QT Int : 322 ms P-R-T Axes : 022 053 -17 degrees QTc Int : 445 ms SINUS TACHYCARDIA WITH PREMATURE ATRIAL COMPLEXES NONSPECIFIC T WAVE ABNORMALITY ABNORMAL ECG NO PREVIOUS ECGS AVAILABLE Confirmed by EMERSON BRUNO MD ([id number]) on 07/27/2017 1:21:13 PM Referred By: Confirmed By:EMERSON BRUNO MD
--- NOTE | 2017-07-27 13:29 | PN ---
Progress Note (short form) - Note Progress Note: NEUROSURGERY CONSULT DICTATED Chart reviewed History obtained Pt examined H/o "torticollis" x 20 years and more recent gait imbalance, chronic B hand D4- 5 numbness Neck tilted to L nowadays, used to have mostly rotational torticollis PE; AF, VSS HEENT- NC/AT; Neck- tilted to L 25 degrees; F/E 10/45 degrees; lateral rotation L/R 45/50 degrees, mild spasm; Cor- RRR; Lungs- CTA B; Abd- benign; Ext- no sign of DVT CN- intact II-XII; Motor- 4+-5/5 except B hand intrinsics 4+/5; Sensation- decreased LT/PP B C8; DTR- 2+, B toes upgoing; Gait- mildly ataxic WBC 3.9, ESR 6, Cr 0,.6; initial EtOH level 407; platelet 81 to 53; LFT's mildly elevated Head CT- No acute stroke, bleed, fx, HCP Brain MRI- minimal atrophy, no acute ischemia, mass, HCP C spine MRI- multilevel DDD; broad based C6-7 disc protrusion with spinal cord impingement and moderate marked canal stenosis; moderate broad based disc bulge C5-6 with moderate central stenosis and L > R foramenal moderate stenosis; L > R C4-5 paracentral disc protrusion with mild thecal sac and root impingement L > R; endplate sclerosis worst at C6-7; Cord with hyperintensity T2 over C6-7 levels Cervical HNP/DDD/stenosis C6-7 > C5-6 > C4-5 with myelopathy EtOH dependence Given degree of stenosis and MRI appearance, surgical intervention would be appropriate to address cord impingement, though could choose to live with his C spine condition understanding that it would likely deteriorate with time Given multilevel disease, would technically/ideally deal with the 3 levels with most significant compressive pathology (C6-7 > C5-6 > C4-5) with C4-7 ACDF though EtOH dependence/nutritional imbalance would reduce healing rate; could consider C6-7 ACDF to take care of the worst level though adjacent level deterioration rate would likley increase (C5-6 and C6-7) Risks of surgery- bleeding (higher given thrombocytopenia, EtOH), infection, CSF leak, paralysis, hoarseness, dysphagia, non-union (hepatic dysfunction, EtOH ), adjacent level disease, and general anesthesia Will need platelet transfusion pre- and post-op if surgery desired All questions answered Care d/w Dr Lemus earlier Pt will decide after speaking to PMD, family/friend
[2017-07-27] MEDS: NAPH,MB-DB/K PH,MBDB POWDER PACKET PO SCH ×2 (14:33→22:25)
[2017-07-27] MEDS: THIAMINE HCL 100 MG TABLET (FP) PO SCH (22:25)
[2017-07-28] MEDS: chlordiazePOXIDE HCL 25 MG CAPSULE PO SCH (05:14)
[2017-07-28] MEDS: NAPH,MB-DB/K PH,MBDB POWDER PACKET PO SCH (05:14)
--- NOTE | 2017-07-28 06:24 | CONS ---
DATE OF CONSULTATION: 07/27/2017 REQUESTING PHYSICIANS: Jacob Gao M.D., and Zeb Lemus M.D. CARE NURSE RN: Jonathan Singh M.D., Neurosurgery CHIEF COMPLAINT: Torticollis and gait imbalance. HISTORY OF PRESENT ILLNESS: The patient is a 51-year-old right-hand male with a history of torticollis for the past 20 years, ETOH dependent, and prior right ankle fracture, who has been drinking regularly. He stated that he drinks vodka every day. He also has a long history of torticollis, has undergone multiple Botox injection and other medical treatment with marginal relief. His history dates back at least 20 years. The patient presented with several-month history of worsening gait, decreased appetite for the last several past weeks or months. He was also under stress recently because he was moving. The patient denies significant neck pain. He does have chronic neck tilting towards the left, as a result of his torticollis by report. He complained of chronic bilateral hand numbness of the 4th and 5th digit. He has no increased incidence of fall recently. He denies bowel, bladder incontinence. PAST MEDICAL HISTORY: Significant for torticollis, right ankle fracture status post ORIF. CURRENT MEDICATIONS: Includes Ambien, Librium taper, vitamin, potassium chloride, thiamine B1, folic acid. ALLERGIES: No known drug allergies. FAMILY HISTORY: Noncontributory. SOCIAL HISTORY: He does not smoke but drinks daily. 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 REVIEW OF SYSTEMS: Otherwise negative for other major significant constitutional, head and neck, cardiovascular, pulmonary, gastrointestinal, genitourinary, endocrinologic, neurologic, or psychological problems except for the above. PHYSICAL EXAMINATION: Vital signs: Temperature is 98.1, blood pressure 156/91 with pulse rate of 102, O2 saturation 95% on room air. HEENT: Normocephalic, atraumatic, anicteric. Neck: Supple with slight muscle spasm, more on left than right. Cervical spine flexion is 10 degrees and extension is 45 degrees. The lateral rotation is 45 degrees on the right and 50 degrees on the left. He does have chronic head tilting toward the left as a result of his torticollis by report. Coronary: Regular rhythm. Lungs: Clear bilaterally. Abdomen: Benign. Extremities: No signs of DVT. Neurologic: He is awake, alert, oriented x4. Cranial nerves examination intact 2-12. Motor examination shows 5/5 strength except bilateral hand intrinsic muscles which are 4+. Sensory examination shows decreased pain, pinprick, and light touch sensation bilateral C8 distribution. Deep tendon reflexes are 2+ throughout. He does have bilateral upgoing toes. Gait is mildly ataxic, and he has a positive Romberg sign. Cerebellar examination demonstrated mild tremor at rest bilaterally. He has otherwise intact finger to nose examination. LABORATORY EXAMINATION: Laboratory examination shows white blood cell count 3.9, hemoglobin 15.9, and platelet count is 53,000; it was initially 81,000. ESR is 6, serum sodium is 137, potassium 4.0, BUN and creatinine are 7 and 0.6, respectively. Urinalysis showed 2 WBCs and 2 RBCs. Initial alcohol level was 407. CT scan of the head demonstrated no acute fracture or bleed. There is no significant mass effect or midline shift or edema. MRI of the brain demonstrated minimal cerebral atrophy. There is no acute ischemia, mass, or hydrocephalus. MRI of the cervical spine demonstrated multilevel cervical degenerative disk disease. The degeneration is most noticeable at C4-5, C5-6, and C6-7; at C6-7, there is broad base disk protrusion with spinal cord impingement, which results in T2 hyperintensity at this level. This is consistent with myelomalacia or edema of the spinal cord. There is broad-based disk bulge at C5-6, which results in moderate spinal stenosis, central stenosis as well as moderate left C5-6 foraminal narrowing. There is left greater than right C4-5 paracentral disk protrusion. There is mild degenerative disk bulge at C3-4 with normal disk space height. There is no spinal cord thecal sac impingement at this level. IMPRESSION: 1. Multilevel cervical disk disease C6-7 greater than C5-6 greater than C4-5 with spinal stenosis and myelomalacia/edema of spinal cord and cervical myelopathy. 2. Ethyl alcohol dependence. 3. Thrombocytopenia. 4. History of torticollis. RECOMMENDATION: The patient presents with 20+ year history of torticollis which has been treated medically. He recalls having an MRI done 20 years ago, but does not have a report or the images of that study. His current examination demonstrated him to have upgoing toes bilaterally as well as slight weakness of bilateral hand intrinsic muscles. He also has numbness bilateral C8 distribution. MRI demonstrated spinal cord edema/myelomalacia at the C6-7 level associated with moderate to marked stenosis and disk protrusion. There is also moderate stenosis at C5-6 and bilateral C4-5 disk protrusion. The patient can choose to live with his current cervical spine condition, understanding that his condition is likely to deteriorate with the passage of time, especially in light of his underlying torticollis. A course of Neurontin or Lyrica could be considered for symptomatic treatment. If the patient does have neurological symptoms and MRI findings which would make surgical intervention appropriate, he will be a candidate for anterior cervical decompression and fusion at least at the C6-7 level. Because of his chronic alcohol use and likely poor nutritional status and healing power, C6-7 diskectomy and fusion could be contemplated. On the other hand, adjacent level disease rate will be extremely high, given the existing disease especially after fusion of C6-7 level alone. C6-7 is the worse level of stenosis at this time. He can also opt to undergo 3-level diskectomy and fusion from C4 to C7, which will take care of most of the stenosis; however, it will be a somewhat longer surgery with slightly increased risks. The healing rate of fusion would also be lower given the 3-level fusion. In that case, for the use of external cervical collar as well as external bone growth stimulator after surgery will be needed. Risks of surgery would include but not limited to bleeding, infection, dural tear with CSF leak, paralysis, neurologic injury, hoarseness, swallowing difficulty, nonunion of fusion, adjacent level disease, and other risk of general anesthesia. The patient will likely need preoperative platelet transfusion if surgical intervention is contemplated. The above was discussed with patient at bedside. The pros and cons of treatment approaches discussed, and all questions were answered. The patient will discuss his choices and decision with his family and friends and let the medical team know his decision. JONATHAN SINGH M.D. MAYTE/[id number]
[2017-07-28] MEDS: SODIUM CHLORIDE 1,000 ML IV SCH (06:56)
[2017-07-28 08:29] LABS: BASO % 0.8 % (0-2.0); EOS % 1.9 % (0-4.5); HEMATOCRIT 46.7 % (35.4-49); HEMOGLOBIN 15.4 GM/dL (11.7-16.9); LYMPH % 23.6 % (8-40); MCH 32.1 pg (25.7-33.7); MEAN CELL VOLUME 97.3 fl (80-96); MEAN PLT VOLUME 8.4 fl (7.5-11.1); NEUT % 62.7 % (42.8-82.8); PLATELET COUNT 59 K/MM3 (134-434); RDW 13.8 % (11.9-15.9); WHITE BLOOD COUNT 4.9 K/mm3 (4.0-10.0)
[2017-07-28 09:05] LABS: ANION GAP 10 (8-16); BLOOD UREA NITROGEN 10 mg/dL (7-18); CHLORIDE 108 mmol/L (98-107); CO2 22 mmol/L (21-32); CREATININE 0.6 mg/dL (0.7-1.3); GLUCOSE,RANDOM 109 mg/dL (74-106); PHOSPHOROUS 3.8 mg/dL (2.5-4.9); POTASSIUM 3.9 mmol/L (3.5-5.1); SODIUM 140 mmol/L (136-145)
--- NOTE | 2017-07-28 09:27 | PN ---
S Progress Note (SOAP) Subjective: patient without complaints but still appears tremulous and anxious,m reports cervical disc bulge reprotedly causing leg weakness and may need surgery Objective: 07/28/17 09:24 Vital Signs - 24 hr 07/27/17 07/27/17 07/27/17 10:00 15:24 19:00 Temperature 98.9 F 99.2 F Pulse Rate 102 H 104 H 98 H Respiratory 20 20 20 Rate Blood Pressure 156/93 145/92 136/75 07/27/17 07/28/17 21:00 06:00 Temperature 98.2 F 98.6 F Pulse Rate 87 84 Respiratory 20 18 Rate Blood Pressure 147/68 128/66 Laboratory Results - last 24 hr 07/26/17 07/28/17 08:11 07:30 WBC 4.9 RBC 4.80 Hgb 15.4 Hct 46.7 MCV 97.3 H MCH 32.1 MCHC 33.0 RDW 13.8 Plt Count 59 L MPV 8.4 Neutrophils % 62.7 Lymphocytes % 23.6 Monocytes % 11.0 H Eosinophils % 1.9 Basophils % 0.8 Lyme Screen IgG & IgM <0.91 repeat k pending, was hypokalemic still recieving supplements, a and o x3 anxious and tremulous Assessment: 07/28/17 09:26 imaging : cervical spinal stenosis, continue detox, d/c kcl supplementation if k above 4, complete detox,may need prn libirum, vitamin supplements, cousled risksof surgery if he rlapses to alcohol use, refusing rehab at this time, refer to intensive outpatietn therapy at [facility] or other facility of patient choice,. He lives in [facility].
--- NOTE | 2017-07-28 09:34 | PN ---
Progress Note (short form) - Note Progress Note: Neurology HPI: 51 yo male, long-standing history of torticollis, with previous procedures, including botox and muscle relaxants that were ineffective, presents with unsteady gait, decreased appetite. Notes appetite has been off for several weeks. Has been stressed lately, as has been moving into a new home and trying to get his old home ready for renting. Has been drinking about a glass of Vodka every night, more on weekends and lately there have been a lot of holiday parties that he has attended which also involved drinking. CT head was completed and did not show acute changes. MRI brain was completed and did not show acute changes, some cerebellar atrophy noted likely related to Etoh use. MRI C spine also noted and showed severe spinal stenosis C6/C7 with spinal cord flattening noted. Reviewed Dr. scottie Garcia note, had extensive coversation with patient. Seems reluctant to make a decision and may want to push off intervention. Is nervous about having procedure. Though there is likelihood that this can worsen and further compression of cord which I explained. Patient to make the ultimate decision on treatment. Active Medications Chlordiazepoxide HCl (Librium -) 15 mg PO [id number] [facility] Stop: 07/29/17 05:01 Chlordiazepoxide HCl (Librium -) 25 mg PO Q4H PRN PRN Reason: WITHDRAWAL(CONT SUBST) Stop: 07/29/17 10:14 Folic Acid (Folic Acid -) 1 mg PO DAILY [facility] Last Admin: 07/27/17 10:28 Dose: 1 mg Sodium Chloride (Normal Saline -) 1,000 mls @ 75 mls/hr IV ASDIR [facility] Last Admin: 07/28/17 06:56 Dose: 75 mls/hr Multivitamins/Minerals/Vitamin C (Tab-A-Vit -) 1 tab PO DAILY [facility] Last Admin: 07/27/17 10:28 Dose: 1 tab Potassium Chloride (K-Dur -) 20 meq PO BID [facility] Last Admin: 07/27/17 22:26 Dose: 20 meq Thiamine HCl (Vitamin B1 -) 100 mg PO HS [facility] Last Admin: 07/27/17 22:25 Dose: 100 mg Zolpidem Tartrate (Ambien -) 10 mg PO HS PRN PRN Reason: INSOMNIA Physical Examination Last Vital Signs Temp Pulse Resp BP Pulse Ox 98.6 F 84 18 128/66 95 01/04/18 06:00 07/28/17 06:00 07/28/17 06:00 07/28/17 06:00 07/25/17 16:56 Constitutional: Yes: No Distress, Calm Neck: Yes: Other (torticollis with left sided tilt) Cardiovascular: Yes: Regular Rate and Rhythm, S1, S2. No: Murmur Respiratory: Yes: Regular, CTA Bilaterally. No: Rales, Rhonchi, Wheezes Gastrointestinal: Yes: Normal Bowel Sounds, Soft. No: Distention, Tenderness Edema: No Neurological: CN intact, no facial droop, generalized tremulousness noted, sterngth intact, gait limited ability to ambulate Labs: CBCD WBC 4.9 K/mm3 (4.0-10.0) 07/28/17 07:30 RBC 4.80 M/mm3 (4.00-5.60) 07/28/17 07:30 Hgb 15.4 GM/dL (11.7-16.9) 07/28/17 07:30 Hct 46.7 % (35.4-49) 07/28/17 07:30 MCV 97.3 fl (80-96) H 07/28/17 07:30 MCHC 33.0 g/dl (32.0-35.9) 07/28/17 07:30 RDW 13.8 % (11.9-15.9) 07/28/17 07:30 Plt Count 59 K/MM3 (134-434) L 07/28/17 07:30 MPV 8.4 fl (7.5-11.1) 07/28/17 07:30 CMP Sodium 137 mmol/L (136-145) 07/27/17 06:30 Potassium 4.0 mmol/L (3.5-5.1) D 07/27/17 06:30 Chloride 103 mmol/L (98-107) 07/27/17 06:30 Carbon Dioxide 22 mmol/L (21-32) 07/27/17 06:30 Anion Gap 12 (8-16) 07/27/17 06:30 BUN 7 mg/dL (7-18) 07/27/17 06:30 Creatinine 0.6 mg/dL (0.7-1.3) L 01/03/18 06:30 Creat Clearance w eGFR > 60 (>60) 07/26/17 08:11 Calcium 8.6 mg/dL (8.5-10.1) 07/27/17 06:30 Total Bilirubin 1.3 mg/dL (0.2-1.0) H D 07/26/17 08:11 AST 64 U/L (15-37) H D 07/26/17 08:11 ALT 48 U/L (12-78) D 07/26/17 08:11 Alkaline Phosphatase 73 U/L (45-117) 07/26/17 08:11 Total Protein 6.9 g/dl (6.4-8.2) 07/26/17 08:11 Albumin 3.6 g/dl (3.4-5.0) 07/26/17 08:11 Imaging - Results Chest X-ray: Image Reviewed ((unofficial) no acute lung disease) Cat Scan: Head, reviewed, no acute changes MRI brain; No acute changes MRI C spine: severe spinal stenosis noted with flattening of cord Plan: 51 yo male, long-standing history of torticollis, with previous procedures, including botox and muscle relaxants that were ineffective, presents with unsteady gait, decreased appetite. Notes appetite has been off for several weeks. Has been stressed lately, as has been moving into a new home and trying to get his old home ready for renting. Has been drinking about a glass of Vodka every night, more on weekends and lately there have been a lot of holiday parties that he has attended which also involved drinking. CT head was completed and did not show acute changes. MRI brain was completed and did not show acute changes, some cerebellar atrophy noted likely related to Etoh use. MRI C spine also noted and showed severe spinal stenosis C6/C7 with spinal cord flattening noted. NSGY note reviewed, appreciated Dr. Scottie garcia input patient to consider ACDF intervention Can continue Decadron for now Physcial therapy ordered Etoh counseling and cessation. Monitor for withdrawal, Librium Fall precautions
[2017-07-28] MEDS: POTASSIUM CHLORIDE TABS 20 MEQ TABLET.ER (FP) PO SCH ×2 (09:45→22:30)
[2017-07-28] MEDS: MULTIVITAMINS (DAILY MVI) TABLET (FP) PO SCH (09:45)
[2017-07-28] MEDS: FOLIC ACID 1 MG TABLET (FP) PO SCH (09:45)
[2017-07-28] MEDS: chlordiazePOXIDE 5 MG CAPSULE PO SCH ×3 (10:08→22:29)
--- NOTE | 2017-07-28 14:27 | PN ---
Progress Note (short form) - Note Progress Note: Patient seen and examined Chart reviewed Patient siting up in bed, alert, appropriate and responsive. Denies new tremors or increased anxiety Has concern about need for spinal surgery. Wants to be able to get OOB on is own and ambulate. Cerebellar abnormality of note and may be relevant in this regard. Labs, radiologic procedures and progress notes reviewed. Selected Entries 07/27/17 07/28/17 21:00 12:00 Temperature 97.6 F Pulse Rate 97 H Respiratory 18 Rate Blood Pressure 140/85 Oxygen Delivery Room Air Method Fraction of 98 Inspired Oxygen (FIO2) Laboratory Tests 07/25/17 07/25/17 07/26/17 18:12 18:12 08:11 WBC Hgb Hct Plt Count Sodium Potassium Chloride Carbon Dioxide BUN Creatinine Random Glucose Calcium Phosphorus Magnesium Total Bilirubin 1.3 H D AST 64 H D ALT 48 D Alkaline Phosphatase 73 Total Protein 6.9 Albumin 3.6 Vitamin B12 369 TSH 0.67 Alcohol, Quantitative 407.2 H* RPR Titer Lyme Screen IgG & IgM 07/26/17 07/26/17 07/28/17 08:11 08:11 07:30 WBC 4.9 Hgb 15.4 Hct 46.7 Plt Count 59 L Sodium Potassium Chloride Carbon Dioxide BUN Creatinine Random Glucose Calcium Phosphorus Magnesium Total Bilirubin AST ALT Alkaline Phosphatase Total Protein Albumin Vitamin B12 TSH Alcohol, Quantitative RPR Titer Nonreactive Lyme Screen IgG & IgM <0.91 07/28/17 07:30 WBC Hgb Hct Plt Count Sodium 140 Potassium 3.9 Chloride 108 H Carbon Dioxide 22 BUN 10 D Creatinine 0.6 L Random Glucose 109 H Calcium 8.0 L Phosphorus 3.8 D Magnesium 2.0 Total Bilirubin AST ALT Alkaline Phosphatase Total Protein Albumin Vitamin B12 TSH Alcohol, Quantitative RPR Titer Lyme Screen IgG & IgM Chest Clear Cor RRR Abd Soft No tenderness No organomegaly Ext No edema Neck Torticollis Neuro No new focal deficit Assessment and Plan ETOH abuse Notes appreciated Detoxed Torticollis Stable Cervical spine pathology Deciding on need for surgical intervention Unsteady gait Neuro assessment appreciated possible contribution of cerebellar dysfunction as well as alcoholic neuropathy Hypokalemia Monitor Hypophosphatemia Resolved Thrombocytopenia 59K Continue current Rx
[2017-07-28] MEDS: THIAMINE HCL 100 MG TABLET (FP) PO SCH (22:30)
[2017-07-29] MEDS: chlordiazePOXIDE 5 MG CAPSULE PO SCH (06:22)
--- NOTE | 2017-07-29 07:39 | PN ---
Progress Note (short form) - Note Progress Note: NEUROSURGERY H/o "torticollis" x 20 years and more recent gait imbalance, chronic B hand D4- 5 numbness Neck tilted to L nowadays, used to have mostly rotational torticollis PE; AF, VSS HEENT- NC/AT; Neck- tilted to L 25 degrees; F/E 10/45 degrees; lateral rotation L/R 45/50 degrees, mild spasm; Cor- RRR; Lungs- CTA B; Abd- benign; Ext- no sign of DVT CN- intact II-XII; Motor- 4+-5/5 except B hand intrinsics 4+/5; Sensation- decreased LT/PP B C8; DTR- 2+, B toes upgoing; Gait- mildly ataxic C spine MRI- multilevel DDD; broad based C6-7 disc protrusion with spinal cord impingement and moderate marked canal stenosis; moderate broad based disc bulge C5-6 with moderate central stenosis and L > R foramenal moderate stenosis; L > R C4-5 paracentral disc protrusion with mild thecal sac and root impingement L > R; endplate sclerosis worst at C6-7; Cord with T2 hyperintensity over C6-7 platelet 59k Cervical HNP/DDD/stenosis C6-7 (edema vs myelomalacia) > C5-6 > C4-5 with myelopathy EtOH dependence Given degree of stenosis and MRI appearance, surgical intervention would be appropriate to address cord impingement, though pt could choose to live with his C spine condition understanding that it would likely continue to deteriorate with time Given multilevel disease, would technically/ideally deal with the 3 levels with most significant compressive pathology (C6-7 > C5-6 > C4-5) with C4-7 ACDF though EtOH dependence/nutritional imbalance would reduce healing rate; could consider C6-7 ACDF to take care of the worst level though adjacent level deterioration rate would likley increase (C5-6 and C4-5) Risks of surgery- bleeding (higher given thrombocytopenia, EtOH), infection, CSF leak, paralysis, hoarseness, dysphagia, non-union (hepatic dysfunction, EtOH ), adjacent level disease, and general anesthesia The above d/w pt Will need platelet transfusion pre- and post-op if surgery desired Pros and cons of tx approaches discussed; all questions answered Pt hesitant to undergo surgery and desires second opinion
[2017-07-29 08:59] LABS: BASO % 0.7 % (0-2.0); EOS % 1.8 % (0-4.5); HEMATOCRIT 45.3 % (35.4-49); HEMOGLOBIN 15.1 GM/dL (11.7-16.9); LYMPH % 21.6 % (8-40); MCH 32.4 pg (25.7-33.7); MCHC 33.3 g/dl (32.0-35.9); MEAN CELL VOLUME 97.4 fl (80-96); MEAN PLT VOLUME 8.7 fl (7.5-11.1); MONO % 11.3 % (3.8-10.2); NEUT % 64.6 % (42.8-82.8); PLATELET COUNT 86 K/MM3 (134-434); RBC 4.65 M/mm3 (4.00-5.60); RDW 13.8 % (11.9-15.9); WHITE BLOOD COUNT 5.2 K/mm3 (4.0-10.0)
[2017-07-29 09:19] LABS: CHLORIDE 108 mmol/L (98-107); POTASSIUM 4.1 mmol/L (3.5-5.1); SODIUM 137 mmol/L (136-145)
[2017-07-29] MEDS: POTASSIUM CHLORIDE TABS 20 MEQ TABLET.ER (FP) PO SCH (09:20)
[2017-07-29] MEDS: FOLIC ACID 1 MG TABLET (FP) PO SCH (09:20)
[2017-07-29] MEDS: MULTIVITAMINS (DAILY MVI) TABLET (FP) PO SCH (09:20)
[2017-07-29 09:26] LABS: ALBUMIN 3.4 g/dl (3.4-5.0); ALK PHOS 69 U/L (45-117); ANION GAP 9 (8-16); BILIRUBIN,TOTAL 1.1 mg/dL (0.2-1.0); BLOOD UREA NITROGEN 8 mg/dL (7-18); CALCIUM 8.6 mg/dL (8.5-10.1); CO2 20 mmol/L (21-32); CREATININE 0.6 mg/dL (0.7-1.3); GLUCOSE,RANDOM 95 mg/dL (74-106); SGOT/AST 45 U/L (15-37); SGPT/ALT 43 U/L (12-78); TOT PROT 6.6 g/dl (6.4-8.2)
--- NOTE | 2017-07-29 09:43 | PN ---
Progress Note (short form) - Note Progress Note: Neurology HPI: 51 yo male, long-standing history of torticollis, with previous procedures, including botox and muscle relaxants that were ineffective, presents with unsteady gait, decreased appetite. Notes appetite has been off for several weeks. Has been stressed lately, as has been moving into a new home and trying to get his old home ready for renting. Has been drinking about a glass of Vodka every night, more on weekends and lately there have been a lot of holiday parties that he has attended which also involved drinking. CT head was completed and did not show acute changes. MRI brain was completed and did not show acute changes, some cerebellar atrophy noted likely related to Etoh use. MRI C spine also noted and showed severe spinal stenosis C6/C7 with spinal cord flattening noted. Reviewed Dr. scottie Garcia note, had extensive coversation with patient. Seems reluctant to make a decision and is nervous about having procedure. Has decided to have second opinion as outpatient. Though there is likelihood that this can worsen and further compression of cord which I explained. Patient to make the ultimate decision on treatment. Active Medications Chlordiazepoxide HCl (Librium -) 25 mg PO Q4H PRN PRN Reason: WITHDRAWAL(CONT SUBST) Stop: 07/29/17 10:14 Folic Acid (Folic Acid -) 1 mg PO DAILY [facility] Last Admin: 07/29/17 09:20 Dose: 1 mg Multivitamins/Minerals/Vitamin C (Tab-A-Vit -) 1 tab PO DAILY [facility] Last Admin: 07/29/17 09:20 Dose: 1 tab Potassium Chloride (K-Dur -) 20 meq PO BID [facility] Last Admin: 07/29/17 09:20 Dose: 20 meq Thiamine HCl (Vitamin B1 -) 100 mg PO HS [facility] Last Admin: 07/28/17 22:30 Dose: 100 mg Zolpidem Tartrate (Ambien -) 10 mg PO HS PRN PRN Reason: INSOMNIA Physical Examination Vital Signs Period Temp Pulse Resp BP Sys/Stewart Pulse Ox Last 24 Hr 97.5 F-98.9 F 84-117 18-20 130-145/61-85 Constitutional: Yes: No Distress, Calm Neck: Yes: Other (torticollis with left sided tilt) Cardiovascular: Yes: Regular Rate and Rhythm, S1, S2. No: Murmur Respiratory: Yes: Regular, CTA Bilaterally. No: Rales, Rhonchi, Wheezes Gastrointestinal: Yes: Normal Bowel Sounds, Soft. No: Distention, Tenderness Edema: No Neurological: CN intact, no facial droop, generalized tremulousness noted, sterngth intact, gait limited ability to ambulate Labs: CBCD WBC 5.2 K/mm3 (4.0-10.0) 07/29/17 08:00 RBC 4.65 M/mm3 (4.00-5.60) 07/29/17 08:00 Hgb 15.1 GM/dL (11.7-16.9) 07/29/17 08:00 Hct 45.3 % (35.4-49) 07/29/17 08:00 MCV 97.4 fl (80-96) H 07/29/17 08:00 MCHC 33.3 g/dl (32.0-35.9) 07/29/17 08:00 RDW 13.8 % (11.9-15.9) 07/29/17 08:00 Plt Count 86 K/MM3 (134-434) L D 07/29/17 08:00 MPV 8.7 fl (7.5-11.1) 07/29/17 08:00 CMP Sodium 140 mmol/L (136-145) 07/28/17 07:30 Potassium 3.9 mmol/L (3.5-5.1) 07/28/17 07:30 Chloride 108 mmol/L (98-107) H 07/28/17 07:30 Carbon Dioxide 22 mmol/L (21-32) 07/28/17 07:30 Anion Gap 10 (8-16) 07/28/17 07:30 BUN 10 mg/dL (7-18) D 07/28/17 07:30 Creatinine 0.6 mg/dL (0.7-1.3) L 07/28/17 07:30 Creat Clearance w eGFR > 60 (>60) 07/26/17 08:11 Calcium 8.0 mg/dL (8.5-10.1) L 07/28/17 07:30 Total Bilirubin 1.3 mg/dL (0.2-1.0) H D 07/26/17 08:11 AST 64 U/L (15-37) H D 07/26/17 08:11 ALT 48 U/L (12-78) D 07/26/17 08:11 Alkaline Phosphatase 73 U/L (45-117) 07/26/17 08:11 Total Protein 6.9 g/dl (6.4-8.2) 07/26/17 08:11 Albumin 3.6 g/dl (3.4-5.0) 07/26/17 08:11 Imaging - Results Chest X-ray: Image Reviewed ((unofficial) no acute lung disease) Cat Scan: Head, reviewed, no acute changes MRI brain; No acute changes MRI C spine: severe spinal stenosis noted with flattening of cord Plan: 51 yo male, long-standing history of torticollis, with previous procedures, including botox and muscle relaxants that were ineffective, presents with unsteady gait, decreased appetite. Notes appetite has been off for several weeks. Has been stressed lately, as has been moving into a new home and trying to get his old home ready for renting. Has been drinking about a glass of Vodka every night, more on weekends and lately there have been a lot of holiday parties that he has attended which also involved drinking. CT head was completed and did not show acute changes. MRI brain was completed and did not show acute changes, some cerebellar atrophy noted likely related to Etoh use. MRI C spine also noted and showed severe spinal stenosis C6/C7 with spinal cord flattening noted. NSGY note reviewed, appreciated Dr. Scottie garcia input Patient desired second opinion as outpatient Does not want to pursue surgical intervention at this time. Etoh counseling and cessation. Monitor for withdrawal, Librium Fall precautions
[2017-07-29 11:23] VITALS: BP 136/71; PULSE 121; TEMP 98.2
--- NOTE | 2017-07-29 12:35 | DS ---
Physical Examination Vital Signs: Vital Signs Temperature 36.8 C 07/29/17 11:00 Pulse Rate 121 H 07/29/17 11:00 Respiratory Rate 16 07/29/17 11:00 Blood Pressure 136/71 07/29/17 11:00 O2 Sat by Pulse Oximetry (%) 95 07/25/17 16:56 Labs: CBC, BMP 07/29/17 08:00 07/29/17 08:00 Discharge Summary Reason For Visit: UNSTEADY GAIT Current Active Problems Alcohol dependence with uncomplicated withdrawal (Acute) Alcohol intoxication (Acute) Cervical spinal cord compression (Acute) Decreased appetite (Acute) Hypokalemia (Acute) Torticollis (Acute) Unsteady gait (Acute) Condition: Guarded - Instructions Diet, Activity, Other Instructions: resume previous diet and activity. please discontinue any further alcohol consumption. Referrals: Carlos Mejia MD [Primary Care Provider] - Zeb Lemus MD [Staff Physician] - Disposition: HOME - Home Medications Comprehensive Discharge Medication List: Ambulatory Orders Folic Acid - 1 mg PO DAILY #30 tablet 07/29/17 Multivitamins [Multivit ([facility] Formulary)] 1 tab PO DAILY #30 tab 07/29/17 Thiamine HCl [Vitamin B1 -] 100 mg PO HS #30 tablet 07/29/17
[2017-07-29 13:30] LABS: PLATELET ESTIMATE DECREASED
== END 2017-07-29 13:11 | disposition home or self-care (01) | DRG 775 ==
LOC: JER 16:28 → JERBED 21:42 → J6S 23:59
PROVIDERS: ADMIT Specialist; ATTEND Specialist
DX: F10.230 Alcohol dependence with withdrawal, uncomplicated (principal); G95.29 Other cord compression; E83.39 Other disorders of phosphorus metabolism; M50.020 Cervical disc disorder with myelopathy, mid-cervical region, unspecified level; D69.6 Thrombocytopenia, unspecified; M48.02 Spinal stenosis, cervical region; M43.6 Torticollis; R26.81 Unsteadiness on feet; E87.6 Hypokalemia
CPT/HCPCS: 36415; 70450-TC; 70551-TC; 71045-TC; 72141-TC; 74176-TC; 80048; 80053; 80307; 81003; 81015; 82607; 83735; 84100; 84443; 85025; 85651; 86593; 86618; 93005; 93010; 97116-GP; 97161-GP; 99284-25

== ENCOUNTER 2018-11-19 18:52 | Inpatient (IN) | payer OTHER ==
--- NOTE | 2018-11-19 20:19 | PDOC ---
History of Present Illness - General Chief Complaint: Injury Stated Complaint: FALL Time Seen by Provider: 11/19/18 20:18 History Source: Patient Exam Limitations: No Limitations - History of Present Illness Initial Comments: 53 yo M w a pmh of torticollis, with previous procedures, including botox and muscle relaxants that were ineffective, presents to the er [facility] for repeated falls and unsteady gait over the past week. The patient is with his at bedside and the patient does not want to be in the hospital so he is intentionally vague on the details. The provides most of the history and the patient agrees that she is telling the truth. The patient started falling down on tuesday, has had a very unsteady gait and has hit his head several times since tuesday. The patient fell around 3 times tuesday, 4 times tuesday, and multiple times today. Some of the falls have been down stairs. The patient recognizes he has been losing his gait and falling more frequently and attributes his bad gait and falls to his torticollis. He states he is not currently in any pain. Denies having a headache, neck pain, chest pain, SOB, or difficulty breathing. - The patient endorses occasional left eye flickering. The patient endorses drinking around 5-6 vodka drinks every day and has done this for more than the past 10 years. PCP: Dr. Mejia PSH: C1/C2 laminectomy 10/09, ORIF right ankle Social Hx: Drinks vodka daily, lives with spouse, works for [employer]. Denies smoking or other substance usage. Allergies: NKA, NKDA Past History - Past Medical History Allergies/Adverse Reactions: Allergies Allergy/AdvReac Type Severity Reaction Status Date / Time No Known Allergies Allergy Verified 11/19/18 19:11 Home Medications: Ambulatory Orders NK [No Known Home Medication] 11/19/18 COPD: No - Suicide/Smoking/Psychosocial Hx Smoking History: Never smoked Have you smoked in the past 12 months: No Hx Alcohol Use: Yes Drug/Substance Use Hx: No Substance Use Type: Alcohol Hx Substance Use Treatment: No Review of Systems - Review of Systems Able to Perform ROS?: Yes Comments:: CONSTITUTIONAL: Absent: fever, no chills, no fatigue EYES: Absent: visual changes ENT: Absent: ear pain, no sore throat CARDIOVASCULAR: Absent: chest pain, no palpitations RESPIRATORY: Absent: cough, no SOB GI: Absent: abdominal pain, no nausea, no vomiting, no constipation, no diarrhea GENITOURINARY: Absent: dysuria, no frequency, no hematuria MUSKULOSKELETAL: Absent: back pain, no arthralgia, no myalgia SKIN: Absent: rash NEURO: Present: unsteady gait Absent: headache, focal weakness or paresthesias, dizziness, seizure, mental status changes, bladder or bowel incontinence *Physical Exam - Vital Signs Last Vital Signs Temp Pulse Resp BP Pulse Ox 97.8 F 95 H 18 140/86 99 11/19/18 19:06 11/19/18 19:06 11/19/18 19:06 11/19/18 19:06 11/19/18 19:06 - Physical Exam General Appearance: Yes: Nourished, Appropriately Dressed, Alcohol on Breath. No: Apparent Distress HEENT: positive: EOMI (There is a bilateral horizontal nystagmus on lateral gaze ), MILADIS, Normal Voice, Scleral Icterus (R), Scleral Icterus (L) Neck: positive: Trachea midline, Rigid, Supple, Decreased range of motion (left sided torticoliis). negative: Lymphadenopathy (L) Respiratory/Chest: positive: Lungs Clear, Normal Breath Sounds. negative: Respiratory Distress, Accessory Muscle Use Cardiovascular: positive: Regular Rhythm, S1, S2, Tachycardia. negative: Edema , JVD Vascular Pulses: Dorsalis-Pedis (R): 2+, Doralis-Pedis (L): 2+ Gastrointestinal/Abdominal: positive: Normal Bowel Sounds, Soft, Organomegaly, Protuberent, Distended, Hepatomegaly. negative: Guarding, Rebound, Tenderness, Hernia, Mass Rectal Exam: positive: deferred Lymphatic: negative: Adenopathy Musculoskeletal: positive: Normal Inspection, Decreased Range of Motion (neck), Muscle Spasm (SCM). negative: CVA Tenderness, Vertebral Tenderness Extremity: positive: Normal Capillary Refill, Erythema, Other (There is mild asterixis). negative: Normal Inspection (outstretched hands cannot stay still. ), Delayed Capillary Refill, Pedal Edema, Calf Tenderness Integumentary: positive: Dry, Warm, Jaundice Neurologic: positive: senior shipping clerk II-XII NML intact, Fully Oriented, Alert, Normal Response, Motor Strength 5/5, Abnormal Cranial NS (b/l lateral nystagmus on horizontal gaze), Respond to painful stimul, Finger to Nose (normal), Depressed Affect. negative: Normal Mood/Affect (Sad. Does not want to be in hospital), Facial Droop, Numbness, Sensory Deficit, Confused, Disoriented, Babinski ED Treatment Course - LABORATORY CBC & Chemistry Diagram: 11/19/18 21:00 11/19/18 21:00 Medical Decision Making - Medical Decision Making 53 yo M w a pmh of torticollis, with previous procedures, including botox and muscle relaxants that were ineffective, presents to the [facility] for repeated falls and unsteady gait over the past week. The patient is with his at bedside and the patient does not want to be in the hospital so he is intentionally vague on the details. The provides most of the history and the patient agrees that she is telling the truth. The patient started falling down on tuesday, has had a very unsteady gait and has hit his head several times since tuesday. The patient fell around 3 times tuesday, 4 times tuesday, and multiple times today. Some of the falls have been down stairs. The patient recognizes he has been losing his gait and falling more frequently and attributes his bad gait and falls to his torticollis. He states he is not currently in any pain. Denies having a headache, neck pain, chest pain, SOB, or difficulty breathing. - The patient endorses occasional left eye flickering. The patient endorses drinking around 5-6 vodka drinks every day and has done this for more than the past 10 years. VS: Tachycardic DDx IBNLT: intoxication, Wernicke encephelopathy, electrolyte/metabolic disturbance, CVA/TIA, Arhythmia, Liver failure/cirrhosis, portal htn. Plan: Labs, Urine, EKG, CXR, Head CT, RUQ US, likely admission. LFT's mildly elevated suggestive of alcohol use. Alcohol level greater than 400. - Given patient's asterixis, consistent alcohol use for past 10 years but recent unsteadiness of gait we will admit the patient to try and figure out if there is an organic cause aside from alcohol usage to why his gait has recently deteriorated. Head CT: Diffuse cortical atrophy, out of proportion to patient's age. CXR: Unremarkable. *DC/Admit/Observation/Transfer Diagnosis at time of Disposition: Unsteady gait, Alcohol intoxication, Torticollis, Repeated falls - Discharge Dispostion Condition at time of disposition: Stable Decision to Admit order: Yes - Referrals - Patient Instructions - Post Discharge Activity
[2018-11-19] MEDS ORDERED: SODIUM CHLORIDE 1,000 ML IV ONE (20:32)
[2018-11-19] MEDS ORDERED: FOLIC ACID INJECTION - 1 MG, THIAMINE HCL 100 MG, MULTIVIT INJECTION ADULT 10 ML in SOD... IVPB ONE (20:36)
[2018-11-19 21:08] LABS: EOS % 0.7 % (0-4.5); HEMATOCRIT 49.3 % (35.4-49); HEMOGLOBIN 16.8 GM/dL (11.7-16.9); LYMPH % 29.8 % (8-40); MCH 32.5 pg (25.7-33.7); MCHC 34.1 g/dl (32.0-35.9); MEAN CELL VOLUME 95.2 fl (80-96); MONO % 6.6 % (3.8-10.2); NEUT % 61.9 % (42.8-82.8); PLATELET COUNT 119 K/MM3 (134-434); RBC 5.18 M/mm3 (4.00-5.60); RDW 13.6 % (11.9-15.9); WHITE BLOOD COUNT 4.3 K/mm3 (4.0-10.0)
[2018-11-19 21:23] LABS: INR 0.97 (0.83-1.09); PROTHROMBIN TIME (PATIENT) 11.4 SEC (9.7-13.0)
[2018-11-19 21:25] LABS: ACTIVATED PTT 33.2 SECONDS (25.2-36.5)
[2018-11-19 21:32] LABS: ALK PHOS 81 U/L (45-117); ANION GAP 11 MMOL/L (8-16); BILIRUBIN,TOTAL 0.5 mg/dL (0.2-1); BLOOD UREA NITROGEN 8 mg/dL (7-18); CALCIUM 8.4 mg/dL (8.5-10.1); CHLORIDE 107 mmol/L (98-107); CO2 25 mmol/L (21-32); CREATININE 0.6 mg/dL (0.55-1.3); GLUCOSE,RANDOM 105 mg/dL (74-106); SGOT/AST 78 U/L (15-37); SGPT/ALT 63 U/L (13-61); SODIUM 143 mmol/L (136-145); TOT PROT 7.7 g/dl (6.4-8.2)
[2018-11-19 21:52] LABS: EPI CELLS 0.3 /HPF (0-5/HPF); URINE APPEARANCE CLEAR; URINE BACTERIA 2.2 /hpf (NEGATIVE); URINE BILIRUBIN NEGATIVE (NEGATIVE); URINE CASTS 1 /lpf (0-8); URINE COLOR YELLOW; URINE GLUCOSE (UA) NEGATIVE (NEGATIVE); URINE KETONE 1+ (NEGATIVE); URINE LEUK ESTERASE NEGATIVE (NEGATIVE); URINE NITRITE NEGATIVE (NEGATIVE); URINE PROTEIN 1+ (NEGATIVE); URINE RBC 3 /hpf (0-4); URINE WBC 1 /hpf (0-5)
[2018-11-19 22:02] LABS: COCAINE, UR NEGATIVE ng/ml (CUTOFF=300); METHADONE, UR NEGATIVE ng/ml (CUTOFF=300); OPIATES, URI NEGATIVE ng/ml (CUTOFF=300); PHENCYCLIDINE,URINE NEGATIVE ng/ml (CUTOFF=25); URINE AMPHETAMINES NEGATIVE ng/ml (CUTOFF=500); URINE BARBITURATES NEGATIVE ng/ml (CUTOFF=200); URINE BENZODIAZEPINES NEGATIVE ng/ml (CUTOFF=200)
--- NOTE | 2018-11-19 23:06 | PDOC ---
Documentation entered by Torrie Bauer SCRIBE, acting as scribe for Elissa Santos MD. Elissa Santos MD: This documentation has been prepared by the [place] Daisy, SCRIBE, under my direction and personally reviewed by me in its entirety. I confirm that the documentation accurately reflects all work, treatment, procedures, and medical decision making performed by me. Attending Attestation - Resident Resident Name: Jori Cantrell - ED Attending Attestation I have performed the following: I have examined & evaluated the patient, The case was reviewed & discussed with the resident, I agree w/resident's findings & plan - HPI HPI: 11/19/18 21:58 The patient is a 53 YOM with a PMH of torticollis who presents to the ER for evaluation of unsteady gait and multiple falls this past week. He admits to multiple head traumas. Denies any pain at this time. Patient drinks 6-7 cups of vodka daily for the past 10 years. The patient denies back pain, neck pain, chest pain, shortness of breath, headache and dizziness. Denies fever, chills, nausea, vomit, diarrhea and constipation. Denies dysuria, frequency, urgency and hematuria. Allergies: NKDA PSH: C1/C2 laminectomy 10/09, ORIF right ankle Social Hx: Daily alcohol use. Denies drug or cigarette use. PCP: Dr. Mejia 11/20/18 00:46 - Physicial Exam PE: 11/19/18 22:54 ADULT EXAM GENERAL: Awake, alert, and fully oriented, in no acute distress (+) Warm to touch HEAD: No signs of trauma EYES: (+) Pupils dilated but reactive to light, EOMI, sclera anicteric, conjunctiva clear ENT: Auricles normal inspection, hearing grossly normal, nares patent. Moist mucosa NECK: (+) Mild torticollis to the right. Neck is supple, no lymphadenopathy, JVD , or masses LUNGS: Breath sounds equal, clear to auscultation bilaterally. No wheezes, and no crackles HEART: Regular rate and rhythm, normal S1 and S2, no murmurs, rubs or gallops ABDOMEN: Soft, nontender, normoactive bowel sounds. No guarding, no rebound. No masses BACK: Midline scar from spinal stenosis surgery EXTREMITIES: Normal range of motion, no edema. No erythema or tenderness. DP/PT pulses 2+ and symmetric. Warm and well perfused. NEUROLOGICAL: Moves all extremities. Normal speech, normal gait SKIN: Warm, Dry, normal turgor, no rashes or lesions noted. - Medical Decision Making 11/19/18 23:29 Patient Name: CACHORRO CRANDALL THIS IS A PRELIMINARY REPORT FROM [facility] DATE OF SERVICE: 2018-11-19 22:25:31 IMAGES: [id number] EXAM: CT head without contrast HISTORY: Headache COMPARISON: None. FINDINGS: There is a mild degree of diffuse cortical atrophy present, out of proportion to patient's age. No evidence of acute infarction. No acute hemorrhage. There is no brain mass. No skull fracture. Visualized portions of the paranasal sinuses are essentially clear. Some images degraded by motion artifact 11/20/18 00:46 Pt will be admitted for neuro eval. Obs admission. Hospitalist is aware.
[2018-11-19] MEDS ORDERED: LORazepam 1 MG TABLET PO PRN (23:35)
--- NOTE | 2018-11-19 23:40 | HP ---
CHIEF COMPLAINT: falls, unsteady gait PCP: Dr. Mejia HISTORY OF PRESENT ILLNESS: Patient is a 53 y/o M w/ PMHx torticollis s/p ineffectual Botox and muscle relaxants, spinal stenosis s/p C1/C2 laminectomy, p/w multiple falls and unsteady gait x 3 days. presented history at bedside as patient was vague and indirect in responses. Had multiple incidents of head trauma with falls, however no further complaints. Pt reports drinking 5-6 vodka drinks daily for the past 10 years, states he cannot recall how many drinks he had over past 3 days. Afebrile w/ stable vitals on presentation. Dry head CT ordered by ED which has not reported at the time of writing. Labs notable for mild transaminitis AST 78 ALT 63, EtOH level 443.6, and INR 0.97. Given NS bolus and banana bag in ED. Recent Travel: PAST MEDICAL HISTORY: As per HPI PAST SURGICAL HISTORY: As per HPI, additionally ORIF R ankle Social History: Smoking: no Alcohol: 5-6 vodka drinks daily Drugs: no Family History: Allergies No Known Allergies Allergy (Verified 11/19/18 19:11) HOME MEDICATIONS: Home Medications Medication Instructions Recorded NK [No Known Home Medication] 11/19/18 REVIEW OF SYSTEMS As per HPI PHYSICAL EXAMINATION Vital Signs - 24 hr 11/19/18 19:06 Temperature 97.8 F Pulse Rate 95 H Respiratory 18 Rate Blood Pressure 140/86 O2 Sat by Pulse 99 Oximetry (%) GENERAL: A&Ox3, visibly intoxicated with strong alcohol odor HEENT: NC/AT, PERRLA, EOMI, MMM, anicteric sclera with injected conjunctiva NECK: Normal range of motion, supple without lymphadenopathy, JVD, or masses. LUNGS: CTA b/l HEART: borderline tachycardic no m/r/g ABDOMEN: +bs, soft, NT, ND MUSCULOSKELETAL: Normal range of motion at all joints. No bony deformities or tenderness. No CVA tenderness. EXTREMITIES: 2+ pulses, warm, well-perfused. No calf tenderness. No peripheral edema. NEUROLOGICAL: transportation technician, motor, sensory systems w/o focal deficit PSYCHIATRIC: intoxicated but cooperative SKIN: Warm, dry, normal turgor, no rashes or lesions noted, normal capillary refill. Laboratory Results - last 24 hr 11/19/18 11/19/18 11/19/18 21:00 21:00 21:00 WBC 4.3 RBC 5.18 Hgb 16.8 Hct 49.3 H MCV 95.2 MCH 32.5 MCHC 34.1 RDW 13.6 Plt Count 119 L D MPV 7.0 L D Absolute Neuts (auto) 2.6 Neutrophils % 61.9 Lymphocytes % 29.8 D Monocytes % 6.6 Eosinophils % 0.7 Basophils % 1.0 Nucleated RBC % 0 PT with INR 11.40 INR 0.97 PTT (Actin FS) 33.2 Sodium 143 Potassium 4.0 Chloride 107 Carbon Dioxide 25 Anion Gap 11 BUN 8 Creatinine 0.6 Creat Clearance w eGFR 140.40 Random Glucose 105 Calcium 8.4 L Phosphorus Magnesium Total Bilirubin 0.5 AST 78 H ALT 63 H Alkaline Phosphatase 81 Ammonia Creatine Kinase 151 Creatine Kinase Index 1.6 CK-MB (CK-2) 2.5 Troponin I < 0.02 Total Protein 7.7 Albumin 4.0 Vitamin B12 Serum Folate Urine Color Urine Appearance Urine pH Ur Specific [place] Urine Protein Urine Glucose (UA) Urine Ketones Urine Blood Urine Nitrite Urine Bilirubin Urine Urobilinogen Ur Leukocyte Esterase Urine WBC (Auto) Urine RBC (Auto) Urine Casts (Auto) U Epithel Cells (Auto) Urine Bacteria (Auto) Opiates Screen Methadone Screen Barbiturate Screen Phencyclidine Screen Ur Amphetamines Screen MDMA (Ecstasy) Screen Benzodiazepines Screen Cocaine Screen U Marijuana (THC) Screen Alcohol, Quantitative 443.6 H Blood Type Antibody Screen 11/19/18 11/19/18 11/19/18 21:00 21:00 21:00 WBC RBC Hgb Hct MCV MCH MCHC RDW Plt Count MPV Absolute Neuts (auto) Neutrophils % Lymphocytes % Monocytes % Eosinophils % Basophils % Nucleated RBC % PT with INR INR PTT (Actin FS) Sodium Potassium Chloride Carbon Dioxide Anion Gap BUN Creatinine Creat Clearance w eGFR Random Glucose Calcium Phosphorus Magnesium Total Bilirubin AST ALT Alkaline Phosphatase Ammonia 20.60 Creatine Kinase Creatine Kinase Index CK-MB (CK-2) Troponin I < 0.02 Total Protein Albumin Vitamin B12 Serum Folate Urine Color Urine Appearance Urine pH Ur Specific [place] Urine Protein Urine Glucose (UA) Urine Ketones Urine Blood Urine Nitrite Urine Bilirubin Urine Urobilinogen Ur Leukocyte Esterase Urine WBC (Auto) Urine RBC (Auto) Urine Casts (Auto) U Epithel Cells (Auto) Urine Bacteria (Auto) Opiates Screen Methadone Screen Barbiturate Screen Phencyclidine Screen Ur Amphetamines Screen MDMA (Ecstasy) Screen Benzodiazepines Screen Cocaine Screen U Marijuana (THC) Screen Alcohol, Quantitative Blood Type B NEGATIVE Antibody Screen Negative 11/19/18 11/19/18 11/19/18 21:35 21:39 21:39 WBC RBC Hgb Hct MCV MCH MCHC RDW Plt Count MPV Absolute Neuts (auto) Neutrophils % Lymphocytes % Monocytes % Eosinophils % Basophils % Nucleated RBC % PT with INR INR PTT (Actin FS) Sodium Potassium Chloride Carbon Dioxide Anion Gap BUN Creatinine Creat Clearance w eGFR Random Glucose Calcium Phosphorus 4.0 Magnesium 2.0 Total Bilirubin AST ALT Alkaline Phosphatase Ammonia Creatine Kinase Creatine Kinase Index CK-MB (CK-2) Troponin I Total Protein Albumin Vitamin B12 316 Serum Folate 6 Urine Color Yellow Urine Appearance Clear Urine pH 5.0 Ur Specific [place] 1.018 Urine Protein 1+ H Urine Glucose (UA) Negative Urine Ketones 1+ H Urine Blood Negative Urine Nitrite Negative Urine Bilirubin Negative Urine Urobilinogen 1.0 Ur Leukocyte Esterase Negative Urine WBC (Auto) 1 Urine RBC (Auto) 3 Urine Casts (Auto) 1 U Epithel Cells (Auto) 0.3 Urine Bacteria (Auto) 2.2 Opiates Screen Negative Methadone Screen Negative Barbiturate Screen Negative Phencyclidine Screen Negative Ur Amphetamines Screen Negative MDMA (Ecstasy) Screen Negative Benzodiazepines Screen Negative Cocaine Screen Negative U Marijuana (THC) Screen Negative Alcohol, Quantitative Blood Type Antibody Screen ASSESSMENT/PLAN: 53 y/o M w/ PMHx torticollis s/p ineffectual Botox and muscle relaxants, spinal stenosis s/p C1/C2 laminectomy, p/w multiple falls and unsteady gait #A -actively and significantly intoxicated by EtOH -mild transaminitis 2/2 EtOH -no signs of head trauma #P -2mg PO ativan q6 and 1mg PO ativan q4 PRN -Librium not given in light of transaminitis -f/u HCT -thiamine -folate -no IVF -f/u CMP, Mg, Phos -regular diet -mechanical DVT PPx -full code -observe on med/surg Visit type - Emergency Visit Emergency Visit: Yes Care time: The patient presented to the Emergency Department on the above date and was hospitalized for further evaluation of their emergent condition. - New Patient This patient is new to me today: Yes Date on this admission: 11/19/18 - Critical Care Critical Care patient: No
[2018-11-20] MEDS ORDERED: LORazepam 2 MG/ML SDV VIAL IVPUSH PRN ×2 (00:08→16:38)
--- NOTE | 2018-11-20 00:09 | PN ---
Teaching Attending Note Name of Resident: Eduard Handley ATTENDING PHYSICIAN STATEMENT I saw and evaluated the patient. I reviewed the resident's note and discussed the case with the resident. I agree with the resident's findings and plan as documented. SUBJECTIVE: OBJECTIVE: s1 and s2 rrr lungs CTA patient is intoxicated abdomen soft non-tender PERRLA AAOX3 ASSESSMENT AND PLAN: 53 y/o M w/ PMHx torticollis s/p ineffectual Botox and muscle relaxants, spinal stenosis s/p C1/C2 laminectomy, p/w multiple falls and unsteady gait #A -actively and significantly intoxicated by EtOH elevation in the AST and ALT 2/2 EtOH - avoid chlorodiazopoxide due to the elevation -no signs of head trauma #P -2mg PO lrazepam q6 and 1mg IVP lorazepam q4 PRN for aggitation and withdrawal -thiamine -folate -regular diet -observe on med/surg PT evaluation
[2018-11-20] MEDS: LORazepam 1 MG TABLET PO SCH ×2 (00:24→05:52)
[2018-11-20 01:46] VITALS: BMI 26.6
[2018-11-20] MEDS ORDERED: LORazepam 1 MG TABLET PO PRN (07:17)
[2018-11-20 07:25] LABS: BASO % 0.9 % (0-2.0); EOS % 1.6 % (0-4.5); HEMATOCRIT 41.9 % (35.4-49); HEMOGLOBIN 14.3 GM/dL (11.7-16.9); LYMPH % 32.2 % (8-40); MCH 32.7 pg (25.7-33.7); MCHC 34.1 g/dl (32.0-35.9); MEAN PLT VOLUME 7.2 fl (7.5-11.1); MONO % 10.1 % (3.8-10.2); NEUT % 55.2 % (42.8-82.8); PLATELET COUNT 92 K/MM3 (134-434); RBC 4.37 M/mm3 (4.00-5.60); RDW 13.4 % (11.9-15.9); WHITE BLOOD COUNT 3.4 K/mm3 (4.0-10.0)
[2018-11-20 07:44] LABS: ALBUMIN 3.4 g/dl (3.4-5.0); ALK PHOS 64 U/L (45-117); ANION GAP 8 MMOL/L (8-16); BILIRUBIN,TOTAL 0.6 mg/dL (0.2-1); BLOOD UREA NITROGEN 8 mg/dL (7-18); CALCIUM 8.4 mg/dL (8.5-10.1); CHLORIDE 110 mmol/L (98-107); CO2 27 mmol/L (21-32); CREATININE 0.7 mg/dL (0.55-1.3); GLUCOSE,RANDOM 117 mg/dL (74-106); PHOSPHOROUS 3.5 mg/dL (2.5-4.9); POTASSIUM 3.4 mmol/L (3.5-5.1); SGOT/AST 50 U/L (15-37); SGPT/ALT 47 U/L (13-61); SODIUM 145 mmol/L (136-145); TOT PROT 6.3 g/dl (6.4-8.2)
[2018-11-20] MEDS ORDERED: POTASSIUM CHLORIDE TABS 20 MEQ TABLET.ER (FP) PO ONE (08:21)
[2018-11-20] MEDS: FOLIC ACID 1 MG TABLET (FP) PO SCH (10:28)
[2018-11-20] MEDS: THIAMINE HCL 100 MG TABLET (FP) PO SCH (10:29)
--- NOTE | 2018-11-20 10:52 | EKG ---
Test Reason : Blood Pressure : / mmHG Vent. Rate : 084 BPM Atrial Rate : 084 BPM P-R Int : 190 ms QRS Dur : 076 ms QT Int : 384 ms P-R-T Axes : 036 052 024 degrees QTc Int : 453 ms NORMAL SINUS RHYTHM NORMAL ECG WHEN COMPARED WITH ECG OF 25-JUL-2017 19:00, PREMATURE ATRIAL COMPLEXES ARE NO LONGER PRESENT T WAVE VARIATION Confirmed by NAOMI HAND MD ([id number]) on 11/20/2018 10:51:53 AM Referred By: Confirmed By:NAOMI HAND MD
[2018-11-20] MEDS ORDERED: chlordiazePOXIDE HCL 25 MG CAPSULE PO PRN (11:12)
--- NOTE | 2018-11-20 11:35 | PN ---
Teaching Attending Note Name of Resident: Darby Villalba ATTENDING PHYSICIAN STATEMENT I saw and evaluated the patient. I reviewed the resident's note and discussed the case with the resident. I agree with the resident's findings and plan as documented with exceptions below. SUBJECTIVE: Patient seen and examined. Tremulous, anxious. But no nausea/vomiting, abdominal pain or dyspnea. Does agree to 3-6 shots of vodka daily. OBJECTIVE: Vital Signs Period Temp Pulse Resp BP Sys/Stewart Pulse Ox Last 24 Hr 97.8 F-98.0 F 88-115 18-20 135-156/77-95 99-99 Intake & Output 11/17/18 11/18/18 11/19/18 11/20/18 23:59 23:59 23:59 23:59 Intake Total 1000 Balance 1000 Weight 170 lb 186 lb General: lying in bed in no acute distress Chest: CTAB, no rales or wheezing HEENT:flushed CVS;S1S2 regular Chest: CTAB, no rales or wheezing Abdomen;Soft, NT, ND, positive bowel sounds, Extremities: Fine tremors, no asterexis Home Medications Medication Instructions Recorded NK [No Known Home Medication] 11/19/18 Active Medications Chlordiazepoxide HCl (Librium -) 10 mg PO [id number] Stop: 11/23/18 11:01 Chlordiazepoxide HCl (Librium -) 10 mg PO Q12H [facility] Stop: 11/24/18 17:01 Chlordiazepoxide HCl (Librium -) 10 mg PO Q4H PRN PRN Reason: WITHDRAWAL(CONT SUBST) Stop: 11/23/18 17:00 Chlordiazepoxide HCl (Librium -) 50 mg PO [id number] [facility] Stop: 11/21/18 11:01 Chlordiazepoxide HCl (Librium -) 25 mg PO [id number] [facility] Stop: 11/22/18 11:01 Chlordiazepoxide HCl (Librium -) 25 mg PO Q4H PRN PRN Reason: WITHDRAWAL(CONT SUBST) Stop: 11/22/18 17:00 Folic Acid (Folic Acid -) 1 mg PO DAILY [facility] Last Admin: 11/20/18 10:28 Dose: 1 mg Thiamine HCl (Vitamin B1 -) 100 mg PO DAILY [facility] Last Admin: 11/20/18 10:29 Dose: 100 mg Laboratory Results - last 24 hr 11/19/18 11/19/18 11/19/18 09:45 21:00 21:00 WBC 4.3 RBC 5.18 Hgb 16.8 Hct 49.3 H MCV 95.2 MCH 32.5 MCHC 34.1 RDW 13.6 Plt Count 119 L D MPV 7.0 L D Absolute Neuts (auto) 2.6 Neutrophils % 61.9 Lymphocytes % 29.8 D Monocytes % 6.6 Eosinophils % 0.7 Basophils % 1.0 Nucleated RBC % 0 PT with INR 11.40 INR 0.97 PTT (Actin FS) 33.2 Sodium Potassium Chloride Carbon Dioxide Anion Gap BUN Creatinine Creat Clearance w eGFR Random Glucose Calcium Phosphorus Magnesium Total Bilirubin AST ALT Alkaline Phosphatase Ammonia Creatine Kinase Creatine Kinase Index CK-MB (CK-2) Troponin I Total Protein Albumin Vitamin B12 Serum Folate Urine Color Urine Appearance Urine pH Ur Specific [place] Urine Protein Urine Glucose (UA) Urine Ketones Urine Blood Urine Nitrite Urine Bilirubin Urine Urobilinogen Ur Leukocyte Esterase Urine WBC (Auto) Urine RBC (Auto) Urine Casts (Auto) U Epithel Cells (Auto) Urine Bacteria (Auto) Opiates Screen Methadone Screen Barbiturate Screen Phencyclidine Screen Ur Amphetamines Screen MDMA (Ecstasy) Screen Benzodiazepines Screen Cocaine Screen U Marijuana (THC) Screen Alcohol, Quantitative RPR Titer Blood Type B NEGATIVE Antibody Screen 11/19/18 11/19/18 11/19/18 21:00 21:00 21:00 WBC RBC Hgb Hct MCV MCH MCHC RDW Plt Count MPV Absolute Neuts (auto) Neutrophils % Lymphocytes % Monocytes % Eosinophils % Basophils % Nucleated RBC % PT with INR INR PTT (Actin FS) Sodium 143 Potassium 4.0 Chloride 107 Carbon Dioxide 25 Anion Gap 11 BUN 8 Creatinine 0.6 Creat Clearance w eGFR 140.40 Random Glucose 105 Calcium 8.4 L Phosphorus Magnesium Total Bilirubin 0.5 AST 78 H ALT 63 H Alkaline Phosphatase 81 Ammonia 20.60 Creatine Kinase 151 Creatine Kinase Index 1.6 CK-MB (CK-2) 2.5 Troponin I < 0.02 Total Protein 7.7 Albumin 4.0 Vitamin B12 Serum Folate Urine Color Urine Appearance Urine pH Ur Specific [place] Urine Protein Urine Glucose (UA) Urine Ketones Urine Blood Urine Nitrite Urine Bilirubin Urine Urobilinogen Ur Leukocyte Esterase Urine WBC (Auto) Urine RBC (Auto) Urine Casts (Auto) U Epithel Cells (Auto) Urine Bacteria (Auto) Opiates Screen Methadone Screen Barbiturate Screen Phencyclidine Screen Ur Amphetamines Screen MDMA (Ecstasy) Screen Benzodiazepines Screen Cocaine Screen U Marijuana (THC) Screen Alcohol, Quantitative 443.6 H RPR Titer Blood Type B NEGATIVE Antibody Screen Negative 11/19/18 11/19/18 11/19/18 21:00 21:35 21:35 WBC RBC Hgb Hct MCV MCH MCHC RDW Plt Count MPV Absolute Neuts (auto) Neutrophils % Lymphocytes % Monocytes % Eosinophils % Basophils % Nucleated RBC % PT with INR INR PTT (Actin FS) Sodium Potassium Chloride Carbon Dioxide Anion Gap BUN Creatinine Creat Clearance w eGFR Random Glucose Calcium Phosphorus 4.0 Magnesium 2.0 Total Bilirubin AST ALT Alkaline Phosphatase Ammonia Creatine Kinase Creatine Kinase Index CK-MB (CK-2) Troponin I < 0.02 Total Protein Albumin Vitamin B12 316 Serum Folate 6 Urine Color Urine Appearance Urine pH Ur Specific [place] Urine Protein Urine Glucose (UA) Urine Ketones Urine Blood Urine Nitrite Urine Bilirubin Urine Urobilinogen Ur Leukocyte Esterase Urine WBC (Auto) Urine RBC (Auto) Urine Casts (Auto) U Epithel Cells (Auto) Urine Bacteria (Auto) Opiates Screen Methadone Screen Barbiturate Screen Phencyclidine Screen Ur Amphetamines Screen MDMA (Ecstasy) Screen Benzodiazepines Screen Cocaine Screen U Marijuana (THC) Screen Alcohol, Quantitative RPR Titer Nonreactive Blood Type Antibody Screen 11/19/18 11/19/18 11/20/18 21:39 21:39 06:30 WBC 3.4 L RBC 4.37 Hgb 14.3 Hct 41.9 D MCV 96.0 MCH 32.7 MCHC 34.1 RDW 13.4 Plt Count 92 L D MPV 7.2 L Absolute Neuts (auto) 1.9 Neutrophils % 55.2 Lymphocytes % 32.2 Monocytes % 10.1 Eosinophils % 1.6 D Basophils % 0.9 Nucleated RBC % 0 PT with INR INR PTT (Actin FS) Sodium Potassium Chloride Carbon Dioxide Anion Gap BUN Creatinine Creat Clearance w eGFR Random Glucose Calcium Phosphorus Magnesium Total Bilirubin AST ALT Alkaline Phosphatase Ammonia Creatine Kinase Creatine Kinase Index CK-MB (CK-2) Troponin I Total Protein Albumin Vitamin B12 Serum Folate Urine Color Yellow Urine Appearance Clear Urine pH 5.0 Ur Specific [place] 1.018 Urine Protein 1+ H Urine Glucose (UA) Negative Urine Ketones 1+ H Urine Blood Negative Urine Nitrite Negative Urine Bilirubin Negative Urine Urobilinogen 1.0 Ur Leukocyte Esterase Negative Urine WBC (Auto) 1 Urine RBC (Auto) 3 Urine Casts (Auto) 1 U Epithel Cells (Auto) 0.3 Urine Bacteria (Auto) 2.2 Opiates Screen Negative Methadone Screen Negative Barbiturate Screen Negative Phencyclidine Screen Negative Ur Amphetamines Screen Negative MDMA (Ecstasy) Screen Negative Benzodiazepines Screen Negative Cocaine Screen Negative U Marijuana (THC) Screen Negative Alcohol, Quantitative RPR Titer Blood Type Antibody Screen 11/20/18 06:30 WBC RBC Hgb Hct MCV MCH MCHC RDW Plt Count MPV Absolute Neuts (auto) Neutrophils % Lymphocytes % Monocytes % Eosinophils % Basophils % Nucleated RBC % PT with INR INR PTT (Actin FS) Sodium 145 Potassium 3.4 L Chloride 110 H Carbon Dioxide 27 Anion Gap 8 BUN 8 Creatinine 0.7 Creat Clearance w eGFR 117.52 Random Glucose 117 H Calcium 8.4 L Phosphorus 3.5 Magnesium 2.0 Total Bilirubin 0.6 AST 50 H ALT 47 Alkaline Phosphatase 64 Ammonia Creatine Kinase Creatine Kinase Index CK-MB (CK-2) Troponin I Total Protein 6.3 L Albumin 3.4 Vitamin B12 Serum Folate Urine Color Urine Appearance Urine pH Ur Specific [place] Urine Protein Urine Glucose (UA) Urine Ketones Urine Blood Urine Nitrite Urine Bilirubin Urine Urobilinogen Ur Leukocyte Esterase Urine WBC (Auto) Urine RBC (Auto) Urine Casts (Auto) U Epithel Cells (Auto) Urine Bacteria (Auto) Opiates Screen Methadone Screen Barbiturate Screen Phencyclidine Screen Ur Amphetamines Screen MDMA (Ecstasy) Screen Benzodiazepines Screen Cocaine Screen U Marijuana (THC) Screen Alcohol, Quantitative RPR Titer Blood Type Antibody Screen Abdominal US: diffuse fatty infiltration of liver CT brain neg ASSESSMENT AND PLAN: 53 yom with torticollis s/p ineffectual Botox and muscle relaxants, spinal stenosis s/p C1/C2 laminectomy, p/w multiple falls and unsteady gait admitted with ongoing alcohol abuse/withdrawal and abnormal LFTs -ETOH abuse/Acute alcohol withdrawal -Abnormal LFTs, suspect alcoholic hepatitis, improved -Thrombocytopenia, suspect alcohol related bone marrow suppression -torticollis s/p ineffectual Botox and muscle relaxants, -spinal stenosis s/p C1/C2 laminectomy, Plan: Ongoing withdrawal symptoms, LFTs improved. Start librium protocol. Patient interested in cessation. Discuss with social work for possible [facility] transfer. PT taylor noted. DVTPPX SCDs dispo pending social work input
--- NOTE | 2018-11-20 17:07 | PN ---
[facility] Progress Note (SOAP) Subjective: 53 y.o. male referred for consultation for etoh detox , reports 4-5 vodka drinks and 1-2 beers/day , progressively increased after C-spine surgery 2 years ago , presented at hospital s/p fall . denies seizures, + blackouts, denies nausea/ vomiting , reports diarrhea , tremors . PMHX : torticollis s/p ineffectual Botox , spinal stenosis s/p C1/C2 laminectomy, p/w multiple falls and unsteady gait Active Medications Chlordiazepoxide HCl (Librium -) 10 mg PO [id number] [facility] Stop: 11/23/18 11:01 Chlordiazepoxide HCl (Librium -) 10 mg PO Q12H [facility] Stop: 11/24/18 17:01 Chlordiazepoxide HCl (Librium -) 10 mg PO Q4H PRN PRN Reason: WITHDRAWAL(CONT SUBST) Stop: 11/23/18 17:00 Chlordiazepoxide HCl (Librium -) 50 mg PO [id number] [facility] Stop: 11/21/18 11:01 Chlordiazepoxide HCl (Librium -) 25 mg PO [id number] [facility] Stop: 11/22/18 11:01 Chlordiazepoxide HCl (Librium -) 25 mg PO Q4H PRN PRN Reason: WITHDRAWAL(CONT SUBST) Stop: 11/22/18 17:00 Last Admin: 11/20/18 12:55 Dose: 25 mg Folic Acid (Folic Acid -) 1 mg PO DAILY [facility] Last Admin: 11/20/18 10:28 Dose: 1 mg Lorazepam (Ativan Injection -) 1 mg IVPUSH Q6H PRN PRN Reason: WITHDRAWAL(CONT SUBST) Thiamine HCl (Vitamin B1 -) 100 mg PO DAILY [facility] Last Admin: 11/20/18 10:29 Dose: 100 mg Objective: Wnwd , ambulatory HEENT : NCAT EOMI mucosae moist Resp : no distress noted EXT good AROM Neuro : AAO x3 , + UE tremors w/ arms extended Skin : lakshmi complexion CBC, BMP 11/20/18 06:30 11/20/18 06:30 Vital Signs - 24 hr 11/19/18 11/20/18 11/20/18 19:06 00:23 01:35 Temperature 97.8 F Pulse Rate 95 H 96 H Pulse Rate [ 88 Left] Respiratory 18 18 20 Rate Blood Pressure 140/86 143/81 Blood Pressure 135/77 [Left Arm] O2 Sat by Pulse 99 99 99 Oximetry (%) 11/20/18 11/20/18 11/20/18 11:32 15:00 15:52 Temperature 98.0 F 99.4 F Pulse Rate 115 H 107 H Pulse Rate [ Left] Respiratory 20 20 Rate Blood Pressure 156/95 147/103 H Blood Pressure [Left Arm] O2 Sat by Pulse 96 Oximetry (%) 11/20/18 17:06 Assessment: alcohol dependence Plan: continue current librium protocol, pt not interested in transfer to inpatient detox or rehab , prefers to d/c to home after completion of current hosital stay and followup with outpatient programs.
--- NOTE | 2018-11-20 17:28 | PN ---
Physical Exam: SUBJECTIVE: Patient seen and examined. He is complaining feeling good today. OBJECTIVE: Vital Signs Period Temp Pulse Resp BP Sys/Stewart Pulse Ox Last 24 Hr 97.8 F-99.4 F 88-115 18-20 135-156/77-103 96-99 GENERAL: The patient is awake, alert, and fully oriented, in no acute distress, tremolous. HEAD: Normal with no signs of trauma. EYES: Extraocular movements intact, sclera anicteric, conjunctiva clear. ENT: Oropharynx clear without exudates, moist mucous membranes. NECK: Supple, deviated to right side. LUNGS: Clear to auscultation bilaterally, no wheezes, no crackles, no accessory muscle use. HEART: Regular rate and rhythm, S1, S2 without murmur, rub or gallop. ABDOMEN: Soft, nontender, nondistended, normoactive bowel sounds, no guarding, no rebound, no hepatosplenomegaly. EXTREMITIES: no edema, + hand tremor. NEUROLOGICAL: Normal speech, gait not observed. PSYCH: Normal mood, normal affect. SKIN: Warm, dry, no rashes. Laboratory Results - last 24 hr 11/19/18 11/19/18 11/19/18 09:45 21:00 21:00 WBC 4.3 RBC 5.18 Hgb 16.8 Hct 49.3 H MCV 95.2 MCH 32.5 MCHC 34.1 RDW 13.6 Plt Count 119 L D MPV 7.0 L D Absolute Neuts (auto) 2.6 Neutrophils % 61.9 Lymphocytes % 29.8 D Monocytes % 6.6 Eosinophils % 0.7 Basophils % 1.0 Nucleated RBC % 0 PT with INR 11.40 INR 0.97 PTT (Actin FS) 33.2 Sodium Potassium Chloride Carbon Dioxide Anion Gap BUN Creatinine Creat Clearance w eGFR Random Glucose Calcium Phosphorus Magnesium Total Bilirubin AST ALT Alkaline Phosphatase Ammonia Creatine Kinase Creatine Kinase Index CK-MB (CK-2) Troponin I Total Protein Albumin Vitamin B12 Serum Folate Urine Color Urine Appearance Urine pH Ur Specific Langston Urine Protein Urine Glucose (UA) Urine Ketones Urine Blood Urine Nitrite Urine Bilirubin Urine Urobilinogen Ur Leukocyte Esterase Urine WBC (Auto) Urine RBC (Auto) Urine Casts (Auto) U Epithel Cells (Auto) Urine Bacteria (Auto) Opiates Screen Methadone Screen Barbiturate Screen Phencyclidine Screen Ur Amphetamines Screen MDMA (Ecstasy) Screen Benzodiazepines Screen Cocaine Screen U Marijuana (THC) Screen Alcohol, Quantitative RPR Titer Blood Type B NEGATIVE Antibody Screen 11/19/18 11/19/18 11/19/18 21:00 21:00 21:00 WBC RBC Hgb Hct MCV MCH MCHC RDW Plt Count MPV Absolute Neuts (auto) Neutrophils % Lymphocytes % Monocytes % Eosinophils % Basophils % Nucleated RBC % PT with INR INR PTT (Actin FS) Sodium 143 Potassium 4.0 Chloride 107 Carbon Dioxide 25 Anion Gap 11 BUN 8 Creatinine 0.6 Creat Clearance w eGFR 140.40 Random Glucose 105 Calcium 8.4 L Phosphorus Magnesium Total Bilirubin 0.5 AST 78 H ALT 63 H Alkaline Phosphatase 81 Ammonia 20.60 Creatine Kinase 151 Creatine Kinase Index 1.6 CK-MB (CK-2) 2.5 Troponin I < 0.02 Total Protein 7.7 Albumin 4.0 Vitamin B12 Serum Folate Urine Color Urine Appearance Urine pH Ur Specific Langston Urine Protein Urine Glucose (UA) Urine Ketones Urine Blood Urine Nitrite Urine Bilirubin Urine Urobilinogen Ur Leukocyte Esterase Urine WBC (Auto) Urine RBC (Auto) Urine Casts (Auto) U Epithel Cells (Auto) Urine Bacteria (Auto) Opiates Screen Methadone Screen Barbiturate Screen Phencyclidine Screen Ur Amphetamines Screen MDMA (Ecstasy) Screen Benzodiazepines Screen Cocaine Screen U Marijuana (THC) Screen Alcohol, Quantitative 443.6 H RPR Titer Blood Type B NEGATIVE Antibody Screen Negative 11/19/18 11/19/18 11/19/18 21:00 21:35 21:35 WBC RBC Hgb Hct MCV MCH MCHC RDW Plt Count MPV Absolute Neuts (auto) Neutrophils % Lymphocytes % Monocytes % Eosinophils % Basophils % Nucleated RBC % PT with INR INR PTT (Actin FS) Sodium Potassium Chloride Carbon Dioxide Anion Gap BUN Creatinine Creat Clearance w eGFR Random Glucose Calcium Phosphorus 4.0 Magnesium 2.0 Total Bilirubin AST ALT Alkaline Phosphatase Ammonia Creatine Kinase Creatine Kinase Index CK-MB (CK-2) Troponin I < 0.02 Total Protein Albumin Vitamin B12 316 Serum Folate 6 Urine Color Urine Appearance Urine pH Ur Specific Lang[place] Urine Protein Urine Glucose (UA) Urine Ketones Urine Blood Urine Nitrite Urine Bilirubin Urine Urobilinogen Ur Leukocyte Esterase Urine WBC (Auto) Urine RBC (Auto) Urine Casts (Auto) U Epithel Cells (Auto) Urine Bacteria (Auto) Opiates Screen Methadone Screen Barbiturate Screen Phencyclidine Screen Ur Amphetamines Screen MDMA (Ecstasy) Screen Benzodiazepines Screen Cocaine Screen U Marijuana (THC) Screen Alcohol, Quantitative RPR Titer Nonreactive Blood Type Antibody Screen 11/19/18 11/19/18 11/20/18 21:39 21:39 06:30 WBC 3.4 L RBC 4.37 Hgb 14.3 Hct 41.9 D MCV 96.0 MCH 32.7 MCHC 34.1 RDW 13.4 Plt Count 92 L D MPV 7.2 L Absolute Neuts (auto) 1.9 Neutrophils % 55.2 Lymphocytes % 32.2 Monocytes % 10.1 Eosinophils % 1.6 D Basophils % 0.9 Nucleated RBC % 0 PT with INR INR PTT (Actin FS) Sodium Potassium Chloride Carbon Dioxide Anion Gap BUN Creatinine Creat Clearance w eGFR Random Glucose Calcium Phosphorus Magnesium Total Bilirubin AST ALT Alkaline Phosphatase Ammonia Creatine Kinase Creatine Kinase Index CK-MB (CK-2) Troponin I Total Protein Albumin Vitamin B12 Serum Folate Urine Color Yellow Urine Appearance Clear Urine pH 5.0 Ur Specific Langston 1.018 Urine Protein 1+ H Urine Glucose (UA) Negative Urine Ketones 1+ H Urine Blood Negative Urine Nitrite Negative Urine Bilirubin Negative Urine Urobilinogen 1.0 Ur Leukocyte Esterase Negative Urine WBC (Auto) 1 Urine RBC (Auto) 3 Urine Casts (Auto) 1 U Epithel Cells (Auto) 0.3 Urine Bacteria (Auto) 2.2 Opiates Screen Negative Methadone Screen Negative Barbiturate Screen Negative Phencyclidine Screen Negative Ur Amphetamines Screen Negative MDMA (Ecstasy) Screen Negative Benzodiazepines Screen Negative Cocaine Screen Negative U Marijuana (THC) Screen Negative Alcohol, Quantitative RPR Titer Blood Type Antibody Screen 11/20/18 06:30 WBC RBC Hgb Hct MCV MCH MCHC RDW Plt Count MPV Absolute Neuts (auto) Neutrophils % Lymphocytes % Monocytes % Eosinophils % Basophils % Nucleated RBC % PT with INR INR PTT (Actin FS) Sodium 145 Potassium 3.4 L Chloride 110 H Carbon Dioxide 27 Anion Gap 8 BUN 8 Creatinine 0.7 Creat Clearance w eGFR 117.52 Random Glucose 117 H Calcium 8.4 L Phosphorus 3.5 Magnesium 2.0 Total Bilirubin 0.6 AST 50 H ALT 47 Alkaline Phosphatase 64 Ammonia Creatine Kinase Creatine Kinase Index CK-MB (CK-2) Troponin I Total Protein 6.3 L Albumin 3.4 Vitamin B12 Serum Folate Urine Color Urine Appearance Urine pH Ur Specific Lang[place] Urine Protein Urine Glucose (UA) Urine Ketones Urine Blood Urine Nitrite Urine Bilirubin Urine Urobilinogen Ur Leukocyte Esterase Urine WBC (Auto) Urine RBC (Auto) Urine Casts (Auto) U Epithel Cells (Auto) Urine Bacteria (Auto) Opiates Screen Methadone Screen Barbiturate Screen Phencyclidine Screen Ur Amphetamines Screen MDMA (Ecstasy) Screen Benzodiazepines Screen Cocaine Screen U Marijuana (THC) Screen Alcohol, Quantitative RPR Titer Blood Type Antibody Screen Active Medications Generic Name Dose Route Start Last Admin Trade Name Freq PRN Reason Stop Dose Admin Chlordiazepoxide HCl 10 mg 11/22/18 17:00 Librium - PO 11/23/18 11:01 [id number] TRINY Chlordiazepoxide HCl 10 mg 11/23/18 17:00 Librium - PO 11/24/18 17:01 Q12H TRINY Chlordiazepoxide HCl 10 mg 11/22/18 17:00 Librium - PO 11/23/18 17:00 Q4H PRN WITHDRAWAL(CONT SUBST) Chlordiazepoxide HCl 50 mg 11/20/18 17:00 Librium - PO 11/21/18 11:01 [id number] TRINY Chlordiazepoxide HCl 25 mg 11/21/18 17:00 Librium - PO 11/22/18 11:01 [id number] TRINY Chlordiazepoxide HCl 25 mg 11/20/18 11:12 11/20/18 12:55 Librium - PO 11/22/18 17:00 25 mg Q4H PRN Administration WITHDRAWAL(CONT SUBST) Folic Acid 1 mg 11/20/18 10:00 11/20/18 10:28 Folic Acid - PO 1 mg DAILY TRINY Administration Lorazepam 1 mg 11/20/18 16:38 Ativan Injection - IVPUSH Q6H PRN WITHDRAWAL(CONT SUBST) Thiamine HCl 100 mg 11/20/18 10:00 11/20/18 10:29 Vitamin B1 - PO 100 mg DAILY TRINY Administration ASSESSMENT/PLAN: The patient is a 53 y/o Male w/ PMHx torticollis, spinal stenosis s/p C1/C2 laminectomy, presented s/p multiple falls, admitted for unsteady gait, alcohol abuse. H/o of falls: -imaging studies negative, CT negative -fall precautions -head elevation -no signs of head trauma mild transaminitis -due to EtOH -improved today -UD with fatty liver Alcohol withdrawal: -admitted intoxicated, given Ativan PRN -Librium protocol started -counselling provided -Detox specialist consulted -thiamine -folate -regular diet -f/u electrolytes DVT PPx -scds Dispo: observe on med-surg, didn't agree to detox in [facility] Problem List - Problems (1) Alcohol intoxication Code(s): F10.929 - ALCOHOL USE, UNSPECIFIED WITH INTOXICATION, UNSPECIFIED (2) Repeated falls Code(s): R29.6 - REPEATED FALLS (3) Torticollis Code(s): M43.6 - TORTICOLLIS (4) Unsteady gait Code(s): R26.81 - UNSTEADINESS ON FEET Visit type - Emergency Visit Emergency Visit: Yes ED Registration Date: 11/19/18 Care time: The patient presented to the Emergency Department on the above date and was hospitalized for further evaluation of their emergent condition. - New Patient This patient is new to me today: Yes Date on this admission: 11/20/18 - Critical Care Critical Care patient: No - Discharge Referral Referred to [facility] Med P.C.: No
[2018-11-20] MEDS: chlordiazePOXIDE HCL 25 MG CAPSULE PO SCH ×2 (17:29→22:10)
[2018-11-21] MEDS: chlordiazePOXIDE HCL 25 MG CAPSULE PO SCH ×4 (05:39→22:20)
[2018-11-21 08:18] LABS: BASO % 0.9 % (0-2.0); HEMATOCRIT 46.3 % (35.4-49); HEMOGLOBIN 15.7 GM/dL (11.7-16.9); LYMPH % 17.4 % (8-40); MEAN CELL VOLUME 94.2 fl (80-96); MEAN PLT VOLUME 7.5 fl (7.5-11.1); MONO % 13.3 % (3.8-10.2); NEUT % 67.4 % (42.8-82.8); PLATELET COUNT 96 K/MM3 (134-434); RBC 4.91 M/mm3 (4.00-5.60); RDW 13.5 % (11.9-15.9); WHITE BLOOD COUNT 3.9 K/mm3 (4.0-10.0)
[2018-11-21 08:28] LABS: ALBUMIN 3.7 g/dl (3.4-5.0); ALK PHOS 75 U/L (45-117); ANION GAP 10 MMOL/L (8-16); BILIRUBIN,TOTAL 1.5 mg/dL (0.2-1); BLOOD UREA NITROGEN 8 mg/dL (7-18); CHLORIDE 104 mmol/L (98-107); CO2 23 mmol/L (21-32); CREATININE 0.5 mg/dL (0.55-1.3); GLUCOSE,RANDOM 102 mg/dL (74-106); POTASSIUM 3.5 mmol/L (3.5-5.1); SGOT/AST 34 U/L (15-37); SGPT/ALT 44 U/L (13-61); SODIUM 137 mmol/L (136-145); TOT PROT 7.1 g/dl (6.4-8.2)
[2018-11-21] MEDS: FOLIC ACID 1 MG TABLET (FP) PO SCH (09:23)
[2018-11-21] MEDS: THIAMINE HCL 100 MG TABLET (FP) PO SCH (09:24)
--- NOTE | 2018-11-21 14:05 | PN ---
Physical Exam: SUBJECTIVE: Patient seen and examined, complaining of difficulty sleeping last night. Denies palpitations, chest pain, hallucinations. OBJECTIVE: Vital Signs Period Temp Pulse Resp BP Sys/Stewart Pulse Ox Last 24 Hr 98.3 F-99.4 F 91-109 18-20 144-161/90-103 96-97 GENERAL: The patient is awake, alert, and fully oriented, in no acute distress, tremolous, lying in bed. HEAD: Normal with no signs of trauma. EYES: Extraocular movements intact, sclera anicteric, conjunctiva clear. ENT: Oropharynx clear without exudates, moist mucous membranes. NECK: Supple, deviated to right side. LUNGS: Clear to auscultation bilaterally, no wheezes, no crackles, no accessory muscle use. HEART: Regular rate and rhythm, S1, S2 without murmur, rub or gallop. ABDOMEN: Soft, nontender, nondistended, normoactive bowel sounds, no guarding. EXTREMITIES: no edema, + hand tremor. NEUROLOGICAL: Normal speech, gait not observed. PSYCH: Normal mood, normal affect. SKIN: Warm, dry, no rashes. Laboratory Results - last 24 hr 11/21/18 11/21/18 07:40 07:40 WBC 3.9 L RBC 4.91 Hgb 15.7 Hct 46.3 MCV 94.2 MCH 32.0 MCHC 34.0 RDW 13.5 Plt Count 96 L MPV 7.5 Absolute Neuts (auto) 2.6 Neutrophils % 67.4 D Lymphocytes % 17.4 D Monocytes % 13.3 H Eosinophils % 1.0 Basophils % 0.9 Nucleated RBC % 0 Sodium 137 Potassium 3.5 Chloride 104 Carbon Dioxide 23 Anion Gap 10 BUN 8 Creatinine 0.5 L Creat Clearance w eGFR 173.28 Random Glucose 102 Calcium 9.0 Total Bilirubin 1.5 H AST 34 ALT 44 Alkaline Phosphatase 75 Total Protein 7.1 Albumin 3.7 Active Medications Generic Name Dose Route Start Last Admin Trade Name Freq PRN Reason Stop Dose Admin Chlordiazepoxide HCl 10 mg 11/22/18 17:00 Librium - PO 11/23/18 11:01 [id number] TRINY Chlordiazepoxide HCl 10 mg 11/23/18 17:00 Librium - PO 11/24/18 17:01 Q12H TRINY Chlordiazepoxide HCl 10 mg 11/22/18 17:00 Librium - PO 11/23/18 17:00 Q4H PRN WITHDRAWAL(CONT SUBST) Chlordiazepoxide HCl 25 mg 11/21/18 17:00 Librium - PO 11/22/18 11:01 [id number] TRINY Chlordiazepoxide HCl 25 mg 11/20/18 11:12 11/20/18 12:55 Librium - PO 11/22/18 17:00 25 mg Q4H PRN Administration WITHDRAWAL(CONT SUBST) Folic Acid 1 mg 11/20/18 10:00 11/21/18 09:23 Folic Acid - PO 1 mg DAILY TRINY Administration Lorazepam 1 mg 11/20/18 16:38 Ativan Injection - IVPUSH Q6H PRN WITHDRAWAL(CONT SUBST) Thiamine HCl 100 mg 11/20/18 10:00 11/21/18 09:24 Vitamin B1 - PO 100 mg DAILY TRINY Administration ASSESSMENT/PLAN: The patient is a 53 y/o Male w/ PMHx torticollis, spinal stenosis s/p C1/C2 laminectomy, presented s/p multiple falls, admitted for unsteady gait, alcohol abuse. H/o of falls: -due to alcohol abuse, imaging studies negative, CT negative -fall precautions -head elevation -no signs of head trauma mild transaminitis -due to EtOH -improved -US with fatty liver Alcohol withdrawal: -admitted intoxicated, given Ativan PRN -Librium protocol started yesterday -counselling provided -Detox specialist consulted -thiamine -folate -regular diet -f/u electrolytes DVT PPx -scds Dispo: med-surg, didn't agree to detox in [facility] Problem List - Problems (1) Alcohol intoxication Code(s): F10.929 - ALCOHOL USE, UNSPECIFIED WITH INTOXICATION, UNSPECIFIED (2) Repeated falls Code(s): R29.6 - REPEATED FALLS (3) Torticollis Code(s): M43.6 - TORTICOLLIS (4) Unsteady gait Code(s): R26.81 - UNSTEADINESS ON FEET Visit type - Emergency Visit Emergency Visit: Yes ED Registration Date: 11/21/18 Care time: The patient presented to the Emergency Department on the above date and was hospitalized for further evaluation of their emergent condition. - New Patient This patient is new to me today: No - Critical Care Critical Care patient: No - Discharge Referral Referred to [facility] Med P.C.: No
[2018-11-21] MEDS ORDERED: POTASSIUM CHLORIDE TABS 20 MEQ TABLET.ER (FP) PO ONE (15:19)
--- NOTE | 2018-11-21 15:25 | PN ---
Teaching Attending Note Name of Resident: Darby Villalba ATTENDING PHYSICIAN STATEMENT I saw and evaluated the patient. I reviewed the resident's note and discussed the case with the resident. I agree with the resident's findings and plan as documented with exceptions below. SUBJECTIVE: Patient seen and examined. Anxious, tremors, no new nausea, vomiting, abdominal pain or complaints. OBJECTIVE: Vital Signs Period Temp Pulse Resp BP Sys/Stewart Pulse Ox Last 24 Hr 98.3 F-99.4 F 91-123 18-20 135-161/89-103 96-97 Intake & Output 11/18/18 11/19/18 11/20/18 11/21/18 23:59 23:59 23:59 23:59 Intake Total 1740 400 Output Total 200 Balance 1740 200 Weight 170 lb 186 lb General: sitting in bed in no acute distress HEENT: face flushed, EOMI, PERRL Neck: soft,supple, no JVD Chest; CTAB, no rales or wheezing Abdomen:soft, NT, ND Extremities: tremors, no edema Home Medications Medication Instructions Recorded NK [No Known Home Medication] 11/19/18 Active Medications Chlordiazepoxide HCl (Librium -) 10 mg PO Q4H PRN PRN Reason: WITHDRAWAL(CONT SUBST) Stop: 11/23/18 17:00 Chlordiazepoxide HCl (Librium -) 25 mg PO [id number] [facility] Stop: 11/22/18 05:01 Chlordiazepoxide HCl (Librium -) 10 mg PO [id number] TRINY Stop: 11/22/18 23:01 Chlordiazepoxide HCl (Librium -) 25 mg PO Q4H PRN PRN Reason: WITHDRAWAL(CONT SUBST) Chlordiazepoxide HCl (Librium -) 10 mg PO Q12H TRINY Stop: 11/23/18 17:01 Folic Acid (Folic Acid -) 1 mg PO DAILY [facility] Last Admin: 11/21/18 09:23 Dose: 1 mg Lorazepam (Ativan Injection -) 1 mg IVPUSH Q6H PRN PRN Reason: WITHDRAWAL(CONT SUBST) Potassium Chloride (K-Dur -) 40 meq PO ONCE ONE Stop: 11/21/18 15:20 Thiamine HCl (Vitamin B1 -) 100 mg PO DAILY [facility] Last Admin: 11/21/18 09:24 Dose: 100 mg Laboratory Results - last 24 hr 11/21/18 11/21/18 07:40 07:40 WBC 3.9 L RBC 4.91 Hgb 15.7 Hct 46.3 MCV 94.2 MCH 32.0 MCHC 34.0 RDW 13.5 Plt Count 96 L MPV 7.5 Absolute Neuts (auto) 2.6 Neutrophils % 67.4 D Lymphocytes % 17.4 D Monocytes % 13.3 H Eosinophils % 1.0 Basophils % 0.9 Nucleated RBC % 0 Sodium 137 Potassium 3.5 Chloride 104 Carbon Dioxide 23 Anion Gap 10 BUN 8 Creatinine 0.5 L Creat Clearance w eGFR 173.28 Random Glucose 102 Calcium 9.0 Total Bilirubin 1.5 H AST 34 ALT 44 Alkaline Phosphatase 75 Total Protein 7.1 Albumin 3.7 ASSESSMENT AND PLAN: 53 yom with torticollis s/p ineffectual Botox and muscle relaxants, spinal stenosis s/p C1/C2 laminectomy, p/w multiple falls and unsteady gait admitted with ongoing alcohol abuse/withdrawal and abnormal LFTs -ETOH abuse/Acute alcohol withdrawal -Abnormal LFTs, suspect alcoholic hepatitis, improved -Thrombocytopenia, suspect alcohol related bone marrow suppression -Hypokalemia -torticollis s/p ineffectual Botox and muscle relaxants, -spinal stenosis s/p C1/C2 laminectomy, Plan: Ongoing withdrawal symptoms, LFTs improved. Continue librium protocol. Patient interested in cessation. Not a candidate for [facility] transfer. Detox input noted. Replete K PT eval noted. DVTPPX SCDs dispo in 2-3 days pending detox and improvement in symptoms.
[2018-11-22] MEDS: chlordiazePOXIDE HCL 25 MG CAPSULE PO SCH (05:10)
[2018-11-22 07:20] LABS: BASO % 0.8 % (0-2.0); EOS % 1.6 % (0-4.5); HEMATOCRIT 46.8 % (35.4-49); HEMOGLOBIN 16.1 GM/dL (11.7-16.9); LYMPH % 20.4 % (8-40); MCH 32.3 pg (25.7-33.7); MCHC 34.3 g/dl (32.0-35.9); MEAN CELL VOLUME 94.3 fl (80-96); MEAN PLT VOLUME 7.7 fl (7.5-11.1); MONO % 8.6 % (3.8-10.2); NEUT % 68.6 % (42.8-82.8); PLATELET COUNT 104 K/MM3 (134-434); RBC 4.97 M/mm3 (4.00-5.60); RDW 13.4 % (11.9-15.9); WHITE BLOOD COUNT 3.8 K/mm3 (4.0-10.0)
[2018-11-22 07:25] LABS: ALBUMIN 3.7 g/dl (3.4-5.0); ALK PHOS 77 U/L (45-117); ANION GAP 9 MMOL/L (8-16); BILIRUBIN,DIRECT 0.4 mg/dL (0.0-0.2); BILIRUBIN,TOTAL 1.3 mg/dL (0.2-1); BLOOD UREA NITROGEN 12 mg/dL (7-18); CALCIUM 8.8 mg/dL (8.5-10.1); CHLORIDE 107 mmol/L (98-107); CO2 22 mmol/L (21-32); CREATININE 0.6 mg/dL (0.55-1.3); GLUCOSE,RANDOM 129 mg/dL (74-106); PHOSPHOROUS 4.2 mg/dL (2.5-4.9); POTASSIUM 3.9 mmol/L (3.5-5.1); SGOT/AST 179 U/L (15-37); SGPT/ALT 152 U/L (13-61); SODIUM 138 mmol/L (136-145)
[2018-11-22] MEDS ORDERED: LORazepam 1 MG TABLET PO PRN (07:32)
[2018-11-22] MEDS: FOLIC ACID 1 MG TABLET (FP) PO SCH (10:44)
[2018-11-22] MEDS: THIAMINE HCL 100 MG TABLET (FP) PO SCH (10:44)
[2018-11-22] MEDS ORDERED: LORazepam 0.5 MG TABLET PO SCH (11:00)
[2018-11-22] MEDS ORDERED: chlordiazePOXIDE HCL 25 MG CAPSULE PO PRN (11:00)
[2018-11-22] MEDS ORDERED: chlordiazePOXIDE HCL 10 MG CAPSULE PO SCH ×2 (11:00→17:00)
[2018-11-22 11:57] VITALS: BP 134/84; PULSE 126
--- NOTE | 2018-11-22 12:14 | DS ---
Physical Exam: SUBJECTIVE: Patient seen and examined. He would like to go home, no complaints. OBJECTIVE: Vital Signs Period Temp Pulse Resp BP Sys/Stewart Pulse Ox Last 24 Hr 97.9 F-98.7 F 96-126 18-20 128-151/81-96 97 PHYSICAL EXAM GENERAL: The patient is awake, alert, and fully oriented, in no acute distress, tremolous, lying in bed. HEAD: Normal with no signs of trauma. EYES: Extraocular movements intact, sclera anicteric, conjunctiva clear. ENT: Oropharynx clear without exudates, moist mucous membranes. NECK: Supple, deviated to right side. LUNGS: Clear to auscultation bilaterally, no wheezes, no crackles, no accessory muscle use. HEART: Regular rate and rhythm, S1, S2 without murmur, rub or gallop. ABDOMEN: Soft, nontender, nondistended, normoactive bowel sounds, no guarding. EXTREMITIES: no edema, + hand tremor. NEUROLOGICAL: Normal speech, gait not observed. PSYCH: Normal mood, normal affect. SKIN: Warm, dry, no rashes. LABS Laboratory Results - last 24 hr 11/22/18 11/22/18 06:00 06:00 WBC 3.8 L RBC 4.97 Hgb 16.1 Hct 46.8 MCV 94.3 MCH 32.3 MCHC 34.3 RDW 13.4 Plt Count 104 L MPV 7.7 Absolute Neuts (auto) 2.6 Neutrophils % 68.6 Lymphocytes % 20.4 Monocytes % 8.6 Eosinophils % 1.6 Basophils % 0.8 Nucleated RBC % 0 Sodium 138 Potassium 3.9 Chloride 107 Carbon Dioxide 22 Anion Gap 9 BUN 12 Creatinine 0.6 Creat Clearance w eGFR 140.40 Random Glucose 129 H Calcium 8.8 Phosphorus 4.2 Magnesium 2.0 Total Bilirubin 1.3 H Direct Bilirubin 0.4 H AST 179 H ALT 152 H Alkaline Phosphatase 77 Total Protein 7.0 Albumin 3.7 HOSPITAL COURSE: Patient is a 53 y/o M w/ PMHx torticollis, spinal stenosis s/p C1/C2 laminectomy , p/w multiple falls and unsteady gait x 3 days. presented history at bedside as patient was vague and indirect in responses. Had multiple incidents of head trauma with falls, however no further complaints. Pt reports drinking 5- 6 vodka drinks daily for the past 10 years, states he cannot recall how many drinks he had over past 3 days. He was afebrile with stable vitals on presentation, head CT with no acute changes reported. The patient was found intoxicated with alcohol. He was admitted for AMS and alcohol abuse. We started him on Librium protocol, fall precautions, Detox consulted. We also found elevated liver enzymes and steatosis on US, GI was consulted. The patient decided to leave AMA. Librium detox was not finished. He also didn't wish to be transferred to [facility] for detox. Risk of leaving the hospital was explained to the patient. He verbalized understanding. Date of Admission:11/21/18 Date of Discharge: 11/22/18 Minutes to complete discharge: 35 Discharge Summary Reason For Visit: REPEATED FALLS,ALCOHOLIC INTOXIFICATION,UNSTEADY Current Active Problems Alcohol intoxication (Acute) Repeated falls (Acute) Torticollis (Acute) Unsteady gait (Acute) Condition: Guarded - Instructions Disposition: AGAINST MEDICAL ADVICE - Home Medications Comprehensive Discharge Medication List: Ambulatory Orders NK [No Known Home Medication] 11/19/18 Problem List - Problems (1) Alcohol intoxication Code(s): F10.929 - ALCOHOL USE, UNSPECIFIED WITH INTOXICATION, UNSPECIFIED (2) Repeated falls Code(s): R29.6 - REPEATED FALLS (3) Torticollis Code(s): M43.6 - TORTICOLLIS (4) Unsteady gait Code(s): R26.81 - UNSTEADINESS ON FEET This patient is new to me today: No Emergency Visit: Yes ED Registration Date: 11/21/18 Care time: The patient presented to the Emergency Department on the above date and was hospitalized for further evaluation of their emergent condition. Critical Care patient: No - Discharge Referral Referred to [facility] Med P.C.: No
--- NOTE | 2018-11-22 13:41 | PN ---
Teaching Attending Note Name of Resident: Darby Villalba ATTENDING PHYSICIAN STATEMENT I saw and evaluated the patient. I reviewed the resident's note and discussed the case with the resident. I agree with the resident's findings and plan as documented with exceptions below. SUBJECTIVE: Patient seen and examined. denies any nausea, vomiting, abdominal pain. Still tremulous, tolerating diet well. Wants to leave the hospital. OBJECTIVE: Vital Signs Period Temp Pulse Resp BP Sys/Stewart Pulse Ox Last 24 Hr 97.9 F-98.7 F 96-126 18-20 128-151/81-96 97 Intake & Output 11/19/18 11/20/18 11/21/18 11/22/18 23:59 23:59 23:59 23:59 Intake Total 1740 1230 480 Output Total 200 Balance 1740 1030 480 Weight 170 lb 186 lb General: sitting in bed, AAOX3, anxious but no acute distress Chest: CTAB, no rales or wheezing Abdomen;Soft, NT, ND, positive bowel sounds, neg Cristina's sign Extremities: mild tremors, improve Neck: left torticollis HEENT: EOMI Laboratory Results - last 24 hr 11/22/18 11/22/18 06:00 06:00 WBC 3.8 L RBC 4.97 Hgb 16.1 Hct 46.8 MCV 94.3 MCH 32.3 MCHC 34.3 RDW 13.4 Plt Count 104 L MPV 7.7 Absolute Neuts (auto) 2.6 Neutrophils % 68.6 Lymphocytes % 20.4 Monocytes % 8.6 Eosinophils % 1.6 Basophils % 0.8 Nucleated RBC % 0 Sodium 138 Potassium 3.9 Chloride 107 Carbon Dioxide 22 Anion Gap 9 BUN 12 Creatinine 0.6 Creat Clearance w eGFR 140.40 Random Glucose 129 H Calcium 8.8 Phosphorus 4.2 Magnesium 2.0 Total Bilirubin 1.3 H Direct Bilirubin 0.4 H AST 179 H ALT 152 H Alkaline Phosphatase 77 Total Protein 7.0 Albumin 3.7 ASSESSMENT AND PLAN: 53 yom with torticollis s/p ineffectual Botox and muscle relaxants, spinal stenosis s/p C1/C2 laminectomy, p/w multiple falls and unsteady gait admitted with ongoing alcohol abuse/withdrawal and abnormal LFTs -ETOH abuse/Acute alcohol withdrawal -Abnormal LFTs, suspect alcoholic hepatitis, improved -Thrombocytopenia, suspect alcohol related bone marrow suppression -Hypokalemia -torticollis s/p ineffectual Botox and muscle relaxants, -spinal stenosis s/p C1/C2 laminectomy, Plan: HR/BP/tremors improved. LFTs rising. GI consult. Change librium to ativan protocol. Patient expressed frustration about being in the hospital, not being able to sleep and wanting to go home. Informed about worsening liver markers, and need for ongoing monitoring. Improvement in withdrawal symptoms but advisable to finish detox especially given patient intending to quit. Patient OX3, relayed full understanding of the current findings including detox , protocol, worsening LFTs and need for additional w/u and management. Also in case leaves AMA, strongly encouraged to get LFTs checked with PCP as soon as he can. Counseled on alcohol cessation, has already been informed about the detox programs and to seek care if palpitations, worsening tremors, anxiety , hallucination, jaundice, belly pain or any new concerns. Patient relayed full understanding of the same.
--- NOTE | 2018-11-22 14:47 | CON.GI ---
Consult Consult Specialty:: Gastroenterology Referred by:: Dr. Rosas Reason for Consultation:: Elevated LFTs - History of Present Illness History of Present Illness: 53yo male h/o torticollis s/p Botox and muscle relaxants, spinal stenosis s/p C1 /C2 laminectomy, ETOH abuse presents after a fall asked to evaluate for elevated LFTs. Pt presents following a fall with unsteady gait s/p CT imaging revealing atrophic changes with no acute pathology. Pt noted to have elevated LFTs on admission with increase today therefore GI consulted. Pt reports drinking 5-6 shots of vodka daily for 8-12 months, last drink on tuesday. Pt notes drinking similar amounts mostly during the weekends over the past 8-10 years. States he was told recently by PMD that LFTs were elevated otherwise denies history of liver disease. Denies abdominal pain, n/v, or altered bowel pattern. Denies melena or hematochezia. Denies weight loss. Denies smoking or IVDA. No known family h/o liver disease or GI malignancy. - History Source History Provided By: Patient - Alcohol/Substance Use Hx Alcohol Use: Yes - Smoking History Smoking history: Never smoked Have you smoked in the past 12 months: No - Social History Occupation: works for [employer] Home Medications - Allergies Allergies/Adverse Reactions: Allergies Allergy/AdvReac Type Severity Reaction Status Date / Time No Known Allergies Allergy Verified 11/19/18 19:11 - Home Medications Home Medications: Ambulatory Orders NK [No Known Home Medication] 11/19/18 Family Disease History - Family Disease History Family Disease History: Other: Father (alzhemers dementia), Brother (depression , hypothyroid) Review of Systems - Review of Systems Constitutional: reports: No Symptoms HENT: reports: No Symptoms Cardiovascular: reports: No Symptoms Respiratory: reports: No Symptoms Gastrointestinal: reports: No Symptoms Physical Exam-GI Vital Signs: Vital Signs Temperature 97.9 F 11/22/18 06:00 Pulse Rate 126 H 11/22/18 11:57 Respiratory Rate 20 11/22/18 11:57 Blood Pressure 134/84 11/22/18 11:57 O2 Sat by Pulse Oximetry (%) 97 11/21/18 21:00 Labs: CBC, BMP 11/22/18 06:00 11/22/18 06:00 INR, PTT INR 0.97 (0.83-1.09) 11/19/18 21:00 Imaging - Results Ultrasound: Report Reviewed Problem List - Problems (1) Elevated LFTs Assessment/Plan: 53yo male h/o torticollis s/p Botox and muscle relaxants, spinal stenosis s/p C1 /C2 laminectomy, ETOH abuse presents after a fall asked to evaluate for elevated LFTs. Mild transaminitis noted on admission with subsequent rise today US revealing diffuse fatty liver infiltration. Labs reviewed in 07/2018 revealing ast elevation. Suspect underlying alcoholic liver disease vs possible component of medication/drug induced liver injury (ie/ ativan, librium), less consistent with cholestatic injury. Plts low though otherwise normal synthetic fctn and no stigmata of chronic liver disease/cirrhosis. -Recommend continue to closely monitor LFT trend -Check hepatitis serologies -Avoid nonessential hepatotoxic medications -Strict etoh abstinence advised -Pt asking to be discharged however emphasized importance of further testing during hospitalization and monitoring of LFTs to ensure improvement. Pt states he would prefer to follow up with his PMD and may sign out AMA. Primary team aware. Code(s): R94.5 - ABNORMAL RESULTS OF LIVER FUNCTION STUDIES
[2018-11-22 14:57] VITALS: TEMP 97.7
[2018-11-22] MEDS ORDERED: chlordiazePOXIDE HCL 10 MG CAPSULE PO PRN (17:00)
[2018-11-23] MEDS ORDERED: chlordiazePOXIDE HCL 10 MG CAPSULE PO SCH ×2 (05:00→17:00)
[2018-11-24] MEDS ORDERED: LORazepam 0.5 MG TABLET PO PRN (11:00)
== END 2018-11-22 13:07 | disposition left against medical advice (07) | DRG 894 ==
LOC: JER 18:52 → INTOOBSV 22:43 → UNDOADMOB 22:43 → JERBED 22:43 → J5S 11-20 01:02 → OBSVTOIN 11-21 07:13
PROVIDERS: ADMIT Internal Medicine; ATTEND Hospitalist
DX: F10.230 Alcohol dependence with withdrawal, uncomplicated (principal); R26.9 Unspecified abnormalities of gait and mobility; M43.6 Torticollis; R29.6 Repeated falls; Y90.8 Blood alcohol level of 240 mg/100 ml or more; M48.02 Spinal stenosis, cervical region; D69.6 Thrombocytopenia, unspecified; K70.10 Alcoholic hepatitis without ascites; R26.81 Unsteadiness on feet; E87.6 Hypokalemia; R94.5 Abnormal results of liver function studies
CPT/HCPCS: 36415; 70450-TC; 71045-TC-FY; 76705-TC; 80048; 80053; 80076; 80307; 81003; 82140; 82550; 82553; 82607; 82746; 83735; 84100; 84425; 84484; 85025; 85610; 85730; 86593; 86850; 86900; 86901; 93005; 93010; 97116-GP; 97162-GP; 99282-25; G0378; J7030